=== PATIENT | female | born 1945 | race Caucasian/White ===

== ENCOUNTER 2018-06-28 05:15 | Day surgery (SDC) | payer MEDICARE, OTHER, SELFPAY ==
[2018-06-28] VITALS (9 sets, daily range): BP systolic 99–145; BP diastolic 63–122; PULSE 54–61; RESP 16; TEMP 36.1–36.3; O2SAT 85–100; BMI 23.6
--- NOTE | 2018-06-28 | COLBX_PTH ---
PATIENT: MALIK QUIÑONES LOC: EN U#:[id number] AGE/SX: 73/F ROOM: RE06/28/[address]: Dr. Corey Gordon MD : 1945 BED: DIS: 06/28/2018 SPEC #: [id number] RECD: 06/28/18 14:25 STATUS: SYLVIA ZORAN #: [id number] ADELAIDA: 06/28/18 00:[address]: Corey Gordon DEPT: SURGICAL PATHOLOGY RECD BY: Varinder Payne ENTERED: 06/28/18 14:25 SP TYPE: COLON BX OTHR DR: Dr. Hola Noel, DO Tissues: Ascending colon Procedures: Surgery Specimen Level IV HEADER OPERATION: Colonoscopy - open access (MOD) PRE-OP DIAGNOSIS: Screening TISSUE SUBMITTED: Mid ascending polyp MICROSCOPIC DIAGNOSIS Mid ascending colon polyp, biopsy: Fragments of inflammatory polyp. Fragments of fecal material. SJ:trent 07/01/18 MICROSCOPIC DESCRIPTION Slides are reviewed. GROSS DESCRIPTION Received in fixative is one container labeled with the patient's name and designated mid ascending polyp. The specimen consists of multiple irregular fragments of neff-pink polyp mixed with fecal material that in aggregate measure 2 x 0.6 x 0.3 cm. The specimen is totally submitted in one cassette. / SJ:rg 06/28/18 TC:5 CPT: 86331
--- NOTE | 2018-06-28 06:15 | HP.PCM_ITS ---
Problem List (1) Personal history of colonic polyps Status: Acute History of Present Illness Date of Admission: 06/28/18 The patient is a 73 year old F who has a personal history of colon polyps. She does not recall her previous colonoscopy but it is been several years in the [facility] greater than 5. She denies bright red blood per rectum or melena. No abdominal pain. No unexpected weight loss. She otherwise enjoys good health. Past Medical History Allergies nitrofurantoin Allergy (Verified 06/25/18 08:09) Upset Stomach prednisone Allergy (Verified 06/25/18 08:09) Other HEART RACING, ANXIETY ATTACK Home Medications: Ambulatory Orders Medication Instructions Recorded peg 3350-electrolytes 236 4,000 ml PO ONCE #4000 ml 05/09/18 gram-22.74 gram-6.74 gram-5.86 gram solution Calcium Carbonate/Vitamin D3 1 each PO DAILY 06/25/18 [Calcium 500 mg-Vit D3 600 Unit] Estradiol [Estrace Vaginal Cream] 1 gm VAGINAL Q7D 06/25/18 Multivitamin [Daily Multiple 1 each PO DAILY 06/25/18 Vitamin] [place]-3 Fatty Acids/Fish Oil [Fish 1 each PO DAILY 06/25/18 Oil 1,000 mg Capsule] Smoking Status: Never smoker Tobacco Use: Non-smoker Review of Systems Constitutional: Denies: Anorexia HEENT: Denies: Difficulty Swallowing Cardiovascular: Denies: Chest Pain Respiratory: Denies: Cough Gastrointestinal: Denies: Abdominal Pain, Melena Endocrine: Denies: Change in Body Habitus Hematologic/ Lymphatic: Denies: Anemia VTE Information - Inpt Only VTE Present on Admission: No Patient Problems: Active and Suspected Problems Personal history of colonic polyps (Acute) - Physical Exam General: Alert, Oriented x3, Cooperative, No apparent distress Oral: Moist Mucosa Neck: Supple Lungs: Clear to auscultation, Normal air movement Cardiovascular: Regular rate, Regular Rhythm Abdomen: Bowel Sounds Present, Soft, Non Tender, Non-Distended Extremities: No Calf Tenderness Psych/Mental Status: Normal Affect Vital Signs Temp Pulse Resp BP Pulse Ox 97.4 F L 61 16 124/81 H 100 06/28/18 05:38 06/28/18 05:38 06/28/18 05:38 06/28/18 05:38 06/28/18 05:38 Oxygen Delivery Method Room Air Weight: 121 lb 4.068 oz Body Mass Index (BMI) 23.6 Assessment/Plan All Active Problems Personal history of colonic polyps (Acute) I am recommending to the patient a colonoscopy with possible biopsy or polypectomy as indicated. She presents via our open access program. She has had an opportunity to ask and have questions answered. We will proceed as indicated. Corey Gordon M.D., F.A.C.S.
--- NOTE | 2018-06-28 06:50 | OP.ENDO_ITS ---
06/28/2018 Hola Noel [address] [id number] Re : Colonoscopy procedure for Giselle Malave Dear Dr. Noel This procedure was performed on Thursday, June 28, 2018. My impressions and recommendations are as follows: Impressions : - One 10 mm polyp in the mid ascending colon, removed with a hot snare. Resected and retrieved. - Diverticulosis in the entire examined colon. There was no evidence of diverticular bleeding. Recommendations : - Discharge patient to home. - Resume previous diet. - Continue present medications. - Repeat colonoscopy in 5 years for surveillance based on pathology results. - Telephone my office for pathology results in 1 week. My findings are described in the full procedure note, which is enclosed. If I can be of further assistance, please feel free to contact me at Doctor phone number(s): Work: . Sincerely, Corey Gordon MD 06/28/2018 6:49:38 AM This report has been signed electronically.
== END 2018-06-28 08:23 | disposition home or self-care (01) ==
LOC: EN 05:18 → AC 05:19
PROVIDERS: Family Provider Student in an Organized Health Care Education/Training Program; PCP Student in an Organized Health Care Education/Training Program; Referring Provider Surgery; Visit Provider Surgery
PROC: 0DJD8ZZ Inspection of Lower Intestinal Tract, Via Natural or Artificial Opening Endoscopic (ICD-10-PCS; CPT 45378; principal; 2018-06-28 06:25)
DX: Z12.11 Encounter for screening for malignant neoplasm of colon (principal); K63.5 Polyp of colon; K57.30 Diverticulosis of large intestine without perforation or abscess without bleeding; Z86.010 Personal history of colon polyps
CPT/HCPCS: 45385; 88305; 99152; 99153; J7120

== ENCOUNTER 2021-01-14 09:12 | Outpatient (CLI) | payer MEDICARE, OTHER, SELFPAY ==
[2021-01-14] MEDS: 0.9% Saline Lock 10 ML Syringe IV (09:32)
[2021-01-14 09:36] VITALS: BP 100/62; PULSE 72; RESP 18; TEMP 37.3; O2SAT 92; BMI 23.2
[2021-01-14 10:17] VITALS: BP 97/54; PULSE 66; RESP 16; TEMP 37.7; O2SAT 96
[2021-01-14 11:27] VITALS: BP 101/56; PULSE 69; RESP 16; TEMP 36.6; O2SAT 97
== END 2021-01-14 11:15 | disposition home or self-care (01) ==
LOC: MS3OUT 09:13 → MS3 09:13
PROVIDERS: PCP Student in an Organized Health Care Education/Training Program; Referring Provider Nurse Practitioner Acute Care; Visit Provider Nurse Practitioner Acute Care
DX: U07.1 COVID-19 (principal)
CPT/HCPCS: J7050; M0243; A4216; Q0240

== ENCOUNTER → 2021-03-28 14:15 | Outpatient (CLI) | payer MEDICARE, OTHER, SELFPAY ==
--- NOTE | 2021-03-28 14:19 | BI_ITS ---
MAMMOGRAPHY - BILATERAL DIAGNOSTIC REASON FOR EXAM: Female, 75 years old. ABN MAMM PERTINENT HISTORY: Non-contributory. TECHNIQUE: Digital examination. Mediolateral oblique (MLO) and craniocaudad (CC) views of both breasts were obtained. CAD: CAD was not performed on this study. COMPARISON: 03/08/2021 FINDINGS: Breast Composition: The breasts are heterogeneously dense, which may obscure small masses. Focal compression views did not confirm a mass in the medial right breast over the lateral left breast most consistent with normal breast parenchyma. No other significant abnormalities are identified. BI/DIAG MAMM W/CAD, BILAT IMPRESSION: Stable bilateral diagnostic mammogram. ASSESSMENT CATEGORY: BIRADS Category 1: Negative. A letter regarding these results will be sent to the patient by the facility within 30 days. FOLLOW UP RECOMMENDATION: Yearly follow up mammogram recommended. (A) Approximately 10% of breast cancers are not detected by mammography. A normal mammogram should not delay biopsy of a clinically suspicious abnormality. Electronically Signed: Domenic Thao MD at 15:14 EST Tel , Service support ,
== END ==
PROVIDERS: PCP Student in an Organized Health Care Education/Training Program; Referring Provider Student in an Organized Health Care Education/Training Program; Visit Provider Student in an Organized Health Care Education/Training Program
DX: R92.8 Other abnormal and inconclusive findings on diagnostic imaging of breast (principal)
CPT/HCPCS: 77062; 77066; G0279

== ENCOUNTER → 2022-04-10 | Outpatient (CLI) | payer MEDICARE, OTHER, SELFPAY ==
--- NOTE | 2022-04-10 13:03 | BI_ITS ---
MAMMOGRAPHY - BILATERAL SCREENING REASON FOR EXAM: Female, 77 years old. Routine annual screening examination. PERTINENT HISTORY: Aunt with breast cancer. TECHNIQUE: Digital bilateral breast [place] (3D mammographic acquisition) in the CC and MLO projections. 2-D mediolateral oblique (MLO) and craniocaudad (CC) views of both breasts were obtained. CAD: Full Field Digital Mammography with Computer Added Detection was performed. COMPARISON: Comparison is made with prior outside examination dated 03/08/2021 and 03/28/2021. FINDINGS: Breast Composition: The breasts are heterogeneously dense, which may obscure small masses. There are no dominant masses or suspicious calcifications. Stable small benign appearing bilateral axillary nodes. No other significant abnormalities are identified. There has been no significant change since the prior study. BI/SCRN MAMM (CAD)W/[place] BILAT IMPRESSION: Stable bilateral screening mammogram. Yearly follow-up mammogram recommended. (A) ASSESSMENT CATEGORY: BIRADS Category 2: Benign. A letter regarding these results will be sent to the patient by the facility within 30 days. Approximately 10% of breast cancers are not detected by mammography. A normal mammogram should not delay biopsy of a clinically suspicious abnormality. [id number] Electronically Signed: Dano Carlson MD at 11:31 EST ,
== END | disposition home or self-care (01) ==
LOC: OPBI 13:00
PROVIDERS: PCP Student in an Organized Health Care Education/Training Program; Visit Provider Student in an Organized Health Care Education/Training Program
DX: Z12.31 Encounter for screening mammogram for malignant neoplasm of breast (principal)
CPT/HCPCS: 77063; 77067

== ENCOUNTER → 2023-04-16 | Outpatient (CLI) | payer MEDICARE, OTHER, SELFPAY ==
--- NOTE | 2023-04-16 08:29 | BI_ITS ---
MAMMOGRAPHY - BILATERAL SCREENING REASON FOR EXAM: Female, 78 years old. Routine annual screening examination. PERTINENT HISTORY: Aunt with breast cancer. History of remote right needle breast biopsy. TECHNIQUE: Digital bilateral breast [place] (3D mammographic acquisition) in the CC and MLO projections. 2-D mediolateral oblique (MLO) and craniocaudad (CC) views of both breasts were obtained. CAD: Full Field Digital Mammography with Computer Added Detection was performed. COMPARISON: Comparison is made with prior study dated April 10, 2022 and March 28, 2021. FINDINGS: Breast Composition: The breasts are heterogeneously dense, which may obscure small masses. There are no dominant masses or suspicious calcifications. No other significant abnormalities are identified. There has been no significant change since the prior study. BI/SCRN MAMM (CAD)W/[place] BILAT IMPRESSION: Stable bilateral screening mammogram. Yearly follow-up mammogram recommended. (A) ASSESSMENT CATEGORY: BIRADS Category 1: Negative. A letter regarding these results will be sent to the patient by the facility within 30 days. Approximately 10% of breast cancers are not detected by mammography. A normal mammogram should not delay biopsy of a clinically suspicious abnormality. [id number] Electronically Signed: Dano Carlson MD at 10:28 EST ,
--- OUTSIDE RECORDS SUMMARY | 2023-04-16 08:38 | XMS RPT_ITS | CCD ---
Author Name Unknown Address [address] [place] [address] Organization [facility] Care Team Providers [employer] Man Name Role Phone Hola Simon DO Primary Care Provider PROVIDER, UNKNOWN Attending Unavailable PROVIDER, UNKNOWN Admitting Unavailable HOLA SIMON Primary Care Unavailable Hola Simon DO Primary Care Provider HOAL SIMON Primary Care Unavailable HOLA SIMON Attending Unavailable HOLA SIMON Referring Unavailable HOLA SIMON Primary Care Unavailable HOLA SIMON Primary Care Unavailable DELL GARSIA Attending Unavailable DELL GARSIA Attending Unavailable DELL GARSIA Referring Unavailable SIMONHOLA GUTIÉRREZ Primary Care Unavailable SIMONHOLA CORADO Primary Care Unavailable GIOVANNA RAMOS Attending Unavailable HOLA SIMON Primary Care Unavailable HOLA SIMON Attending Unavailable HOLA SIMON Referring Unavailable SIMONHOLA GUTIÉRREZ Primary Care Unavailable DELL GARSIA Referring Unavailable SIMONHOLA GUTIÉRREZ Primary Care Unavailable DELL GARSIA Attending Unavailable HOLA SIMON Primary Care Unavailable DELL GARSIA Attending Unavailable HOLA SIMON Referring Unavailable SIMONHOLA GUTIÉRREZ Primary Care Unavailable HOLA SIMON Attending Unavailable HOLA SIMON Primary Care Unavailable Allergies Allergy Classification Reported Allergen(s) Allergy Type Date of Onset Reaction(s) Facility (20 sources) Codeine; Translations: [CODEINE] Drug Allergy 01-26-2005 [facility] Work Phone: (20 sources) Nitrofurantoin; Translations: [NITROFURANTOIN] Drug Allergy 01-26-2005 GI Upset [facility] Work Phone: (20 sources) predniSONE; Translations: [PREDNISONE] Drug Allergy 09-20-2011 Intolerance [facility] Work Phone: Medications Current Medications Medication Drug Class(es) Dates Sig (Normalized) Sig (Original) azithromycin 250 mg oral tablet (1 source) Macrolide Antimicrobial Start: 05-03-2022 End: 05-08-2022 azithromycin (ZITHROMAX Z-DEWAYNE) 250 mg tablet Take 2 tablets day one, then, 1 tablet daily until gone. 6 tablet 0 05/03/2022 05/08/2022 Active Completed/Discontinued Medications Medication Drug Class(es) Dates Sig (Normalized) Sig (Original) [id number] 200 actuat albuterol 0.09 mg/actuat metered dose inhaler (20 sources) beta2-Adrenergic Agonist Start: 09-04-2022 take 2 puff(s) by inhalation every four hours as needed albuterol HFA (PROAIR HFA) 90 mcg/actuation inhaler Inhale 2 Puffs as instructed every 4 hours as needed. 36 g 5 09/04/2022 Active Problems Active Problems Problem Classification Problem Date Documented Da te Episodic/Chronic Administrative/social admission (1 source) Patient encounter status; Translations: [Encounter for health counseling related to travel] Episodic Chronic kidney disease (20 sources) Chronic kidney disease stage 3A ; Translations: [Stage 3a chronic kidney disease] Onset: 03-03-2021 03-03-2021 Chronic Chronic kidney disease (1 source) Chronic kidney disease; Translations: [Stage 3a chronic kidney disease (HCC)] Onset: 03-03-2021 Disorders of lipid metabolism (20 sources) Mixed hyperlipidemia; Translations: [Mixed hyperlipidemia] Onset: 01-26-2005 01-26-2005 Chronic Heart valve disorders (20 sources) Tricuspid valve regurgitation; Translations: [Rheumatic tricuspid insufficiency] Onset: 04-02-2016 10-11-2016 Chronic Menopausal disorders (20 sources) Atrophic vaginitis; Translations: [Postmenopausal atrophic vaginitis] Onset: 08-08-2007 08-08-2007 Chronic Nutritional deficiencies (20 sources) Vitamin D deficiency; Translations: [Vitamin D deficiency, unspecified] Onset: 12-03-2009 12-03-2009 Chronic Other acquired deformities (20 sources) Scoliosis deformity of spine; Translations: [Scoliosis, unspecified] 05-09-2011 Chronic Other bone disease and musculoskeletal deformities (20 sources) Osteopenia; Translations: [Other specified disorders of bone density and structure, unspecified site] 05-09-2011 Episodic Other connective tissue disease (1 source) Digital mucous cyst of left hand; Translations: [Ganglion, left hand] Episodic Other connective tissue disease (2 sources) Dupuytren's disease of palm; Translations: [Palmar fascial fibromatosis [Dupuytren]] Episodic Other connective tissue disease (2 sources) Dupuytren's contracture; Translations: [Palmar fascial fibromatosis [Dupuytren]] Episodic Other connective tissue disease (1 source) Palmar fascial fibromatosis [Dupuytren]; Translations: [Dupuytren's disease] Onset: 09-15-2022 Episodic Other female genital disorders (20 sources) Simple endometrial glandular hyperplasia without atypia; Translations: [Benign endometrial hyperplasia] Onset: 08-08-2007 08-08-2007 Chronic Other lower respiratory disease (1 source) Dry cough; Translations: [Persistent dry cough] Episodic Prolapse of female genital organs (20 sources) Midline cystocele; Translations: [Cystocele, midline] Onset: 08-08-2007 08-08-2007 Chronic Past or Other Problems Problem Classification Problem Date Documented Da te Episodic/Chronic Anal and rectal conditions (20 sources) Rectal polyp; Translations: [Rectal polyp] Onset: 04-07-2011 03-28-2021 Episodic Diabetes mellitus without complication (18 sources) Hyperglycemia; Translations: [Impaired fasting glucose] Onset: 03-06-2022 Episodic Other and unspecified benign neoplasm (20 sources) Benign neoplasm of rectum and anal canal; Translations: [Benign neoplasm of rectum] Onset: 04-07-2011 04-07-2011 Episodic Other connective tissue disease (1 source) Ganglion, left hand; Translations: [Digital mucinous cyst of finger of left hand] Onset: 06-19-2022 Episodic Other lower respiratory disease (14 sources) Cough; Translations: [Other cough] Onset: 03-06-2022 Episodic Other screening for suspected conditions (not mental disorders or infectious disease) (20 sources) Blood chemistry abnormal; Translations: [Other specified abnormal findings of blood chemistry] Onset: 08-08-2007 08-08-2007 Episodic Residual codes; unclassified (20 sources) Family history of breast cancer; Translations: [Family history of malignant neoplasm of breast] Onset: 08-08-2007 08-08-2007 Episodic Results Test Name Value Interpretation Reference Range Facil ity Vital Signs Date Time Vital Sign Value Performing Clinician Deven ramirez 09-04-2022 08:41-0400 Body temperature 97 [degF] Hola Simon DO Work Phone: [facility] 09-04-2022 08:41-0400 Body weight 54.43 kg Hola Simon DO Work Phone: [facility] 09-04-2022 08:41-0400 Diastolic blood pressure 80 mm[Hg] Hola Simon DO Work Phone: [facility] 09-04-2022 08:41-0400 Heart rate 64 /min Hola Simon DO Work Phone: [facility] 09-04-2022 08:41-0400 Respiratory rate 16 /min Hola Simon DO Work Phone: [facility] 09-04-2022 08:41-0400 Systolic blood pressure 124 mm[Hg] Hola Simon DO Work Phone: [facility] 06-09-2022 08:42-0500 Body temperature 97 [degF] Hola Simon DO Work Phone: [facility] 06-09-2022 08:42-0500 Body weight 53.98 kg Hola Simon DO Work Phone: [facility] 06-09-2022 08:42-0500 Diastolic blood pressure 80 mm[Hg] Hola Simon DO Work Phone: [facility] 06-09-2022 08:42-0500 Heart rate 60 /min Hola Simon DO Work Phone: [facility] 06-09-2022 08:42-0500 Respiratory rate 12 /min Hola Simon DO Work Phone: [facility] 06-09-2022 08:42-0500 Systolic blood pressure 120 mm[Hg] Hola Simon DO Work Phone: [facility] 03-06-2022 09:05-0500 Body temperature 97 [degF] Hola Simon DO Work Phone: [facility] 03-06-2022 09:05-0500 Body weight 53.07 kg Hola Simon DO Work Phone: [facility] 03-06-2022 09:05-0500 Diastolic blood pressure 60 mm[Hg] Hola Simon DO Work Phone: [facility] 03-06-2022 09:05-0500 Heart rate 76 /min Hola Simon DO Work Phone: [facility] 03-06-2022 09:05-0500 Respiratory rate 16 /min Hola Simon DO Work Phone: [facility] 03-06-2022 09:05-0500 Systolic blood pressure 100 mm[Hg] Hola Simon DO Work Phone: [facility] 07-08-2021 13:52-0400 Body temperature 98.1 [degF] Bob Villafana MD Work Phone: [facility] 07-08-2021 13:52-0400 Body weight 53.98 kg Bob Villafana MD Work Phone: [facility] 07-08-2021 13:52-0400 Diastolic blood pressure 78 mm[Hg] Bob Villafana MD Work Phone: [facility] 07-08-2021 13:52-0400 Heart rate 73 /min Bob Villafana MD Work Phone: [facility] 07-08-2021 13:52-0400 Respiratory rate 16 /min Bob Villafana MD Work Phone: [facility] 07-08-2021 13:52-0400 SaO2% (BldA) [Mass fraction] 97 % Bob Villafana MD Work Phone: [facility] 07-08-2021 13:52-0400 Systolic blood pressure 112 mm[Hg] Bob Villafana MD Work Phone: [facility] Encounters Encounter Date Encounter Type Care Provider Facility Start: 04-10-2023 End: 04-10-2023 ambulatory HOLA L SIMON Facility:[facility] Start: 04-06-2023 End: 04-07-2023 ambulatory HOLA L SIMON Facility:[facility] Start: 11-02-2022 End: 11-03-2022 ambulatory HOLA L SIMON Facility:[facility] Start: 10-05-2022 End: 10-05-2022 ambulatory DELL GARSIA Facility:[facility] Start: 09-29-2022 Telephone encounter Dell reilly MD Work Phone: Orthopaedics Procedures Date Procedure Procedure Detail Performing Clinician Start: 06-19-2022 Injection 1 tendon sheath/ligament aponeurosis Dell Garsia MD Work Phone: Start: 04-10-2022 Mammography Hola corado DO Work Phone: Start: 08-05-2021 Adult depression screening assessment Diagnostic [facility] Start: 03-08-2021 Mammography Sea Villafana MD Work Phone: Start: 12-25-2018 Adult depression screening assessment Bob Villafana MD Work Phone: Start: 04-07-2011 Colonoscopy Sea Villafana MD Work Phone: Plan of Treatment Date Care Activity Detail Author Start: 08-25-2027 LIPID SCREEN LIPID SCREEN [facility] Start: 08-04-2026 LIPID SCREEN LIPID SCREEN [facility] Start: 08-24-2025 DIABETES SCREEN DIABETES SCREEN [facility] Start: 04-13-2025 LIPID SCREEN LIPID SCREEN [facility] Start: 03-02-2025 DIABETES SCREEN DIABETES SCREEN [facility] Start: 08-04-2024 DIABETES SCREEN DIABETES SCREEN [facility] Start: 03-03-2024 DIABETES SCREEN DIABETES SCREEN [facility] Start: 09-05-2023 ANNUAL PCP TEAM RESEARCH PHYSIOLOGIST NATANAEL DISEASE VISIT ANNUAL PCP TEAM CHRONIC DISEASE VISIT [facility] Start: 08-25-2023 HEMOGLOBIN/HEMATOCRIT HEMOGLOBIN/HEM ATOCRIT [facility] Start: 08-25-2023 SERUM CREATININE SERUM CREATININE [facility] Start: 06-10-2023 ANNUAL PCP TEAM RESEARCH PHYSIOLOGIST NATANAEL DISEASE VISIT ANNUAL PCP TEAM CHRONIC DISEASE VISIT [facility] Start: 04-10-2023 Mammography MAMMOGRAM [facility] Start: 03-06-2023 ANNUAL PCP TEAM RESEARCH PHYSIOLOGIST NATANAEL DISEASE VISIT ANNUAL PCP TEAM CHRONIC DISEASE VISIT [facility] Start: 03-06-2023 COVID-19 VACCINE (#1) COVID-19 VACCI NE (#1) [facility] Immunizations Immunization Date Immunization Notes Care Provider Fa cility 02-01-2011 tetanus toxoid, redu rambo diphtheria toxoid, and acellular pertussis vaccine, adsorbed Bob Villafana MD Work Phone: [facility] Payers Date Payer Category Payer Medicare [id number] 2015 Private Health Insurance HUMANA HUMANA MEDICARE SUPPLEMENT [id number] 2015-Present [phone] [address] [address] [place] [address] Indemnity [id number] 2015 Private Health Insurance HUMANA HUMANA MEDICARE SUPPLEMENT [id number] 2015-Present [phone] [address] [address] [place] [address] Indemnity [id number] 2012 Medicare MEDICARE MEDICAR E A AND B [id number] 2012-Present [phone] [place] [address] Medicare [id number] 2012 Medicare MEDICARE MEDICAR E A AND B [id number] 2012-Present [phone] [place] [address] Medicare [id number] 2012 Medicare [id number] Social History Date Type Detail Facility [facility]: [facility]08[facility] Start: 07-08-2021 End: 09-25-2022 Alcohol intake Current non-drinker of alcohol (finding) [facility] Start: 1945 Sex Assigned At Not on file [facility] Start: 03-22-2021 End: 03-06-2022 Exposure to SARS-CoV-2 (event) Not sure [facility] Work Phone: Start: 12-08-2010 Tobacco use and exposure Smokeless tobacco non-user [facility] Work Phone: Start: 1945 Sex Assigned At Female [facility] Clinical Notes 07-08-2021 to 04-10-2023 Telephone Encounter - Janette Mao Ma - 10/05/2022 11:47 AM EDTTelephone Encounter - Janette Mao Ma - 10/05/2022 11:39 AM EDTTelephone Encounter - Nadege Lawrence LPN - 09/29/2022 2:19 PM EDT Note Date & Type Note Facility 04-10-2023 Note HNO ID: [id number] Author: HOLA SIMON, DO Service: ? Author Type: Physician Type: Progress Notes Filed: 04/10/2023 17:47 Note Text: CC: Giselle Quiñones is a 78 year old female who presents to the office for follow up HPI: She is overall doing well. She is walking for exercise regularly HPL, she isn't interested in statin therapy IFG, diet controlled Estrogen deficiency vaginal symptoms of atrophy, use of estrace topical [place] be traveling out of country on a mission trip. Asking to travel with medication as needed PAST MEDICAL HISTORY Diagnosis Date Excessive or frequent menstruation Heavy periods resolved Mixed hyperlipidemia Hyperlipidemia Osteopenia 04/2012 Papanicolaou smear of cervix with atypical squamous cells of undetermined significance (ASC-US) 2005 Neg HPV Papanicolaou smear of cervix with low grade squamous intraepithelial lesion (LGSIL) 2004 PMH - PAST MEDICAL HISTORY OF 2003 complex endometrial hyperplasia Rectal polyp 04/07/11 tubular adenoma Scoliosis Tricuspid valve insufficiency 2017 repeat Echo in [id number] Vitamin D deficiency PAST SURGICAL HISTORY Procedure Laterality Date BIOPSY BREAST OPEN INCISIONAL Bx of right breast, incisional COLONOSCOPY 06/28/2018 mid ascending colon polyp- benign; repeat 5 years/ Dr. R Cebul COLONOSCOPY AND POLYPECTOMY 04/07/2011 repeat due 2015 HYSTEROSCOPY, DIAGNOSTIC (SEPARATE 05/2006 Hysteroscopy/curettage PAST SURGICAL HISTORY OF ventral hernia repair x 2 PAST SURGICAL HISTORY OF laparoscopy x3 PAST SURGICAL HISTORY OF Left 09/15/2022 5th finger kolb fasciotomy SALPINGO-OOPHORECTOMY COMPL/PRTL UNI/BI SPX Salpingo-oophorectomy/unilateral right TONSILLECTOMY PRIMARY/SECONDARY Tonsillectomy Social History: Social History Tobacco Use Smoking status: Never Smokeless tobacco: Never Vaping Use Vaping Use: Never used Substance Use Topics Alcohol use: No Drug use: No FAMILY HISTORY Problem Relation Age of Onset Hypertension Mother Diabetes Mother Heart Mother Breast Cancer Maternal Aunt Anesthesia Problems No Family History Current Outpatient prescriptions: estradiol (ESTRACE) 0.01 % (0.1 mg/gram) vaginal cream Generic okay, Apply pea-sized amount to perineum and 1 applicator vaginally Mon, Wed, Fri for atrophic vaginitis. albuterol HFA (PROAIR HFA) 90 mcg/actuation inhaler Inhale 2 Puffs as instructed every 4 hours as needed. omeprazole (PRILOSEC) 40 mg capsule Take 1 capsule by mouth once daily. zinc sulfate (ZINC-15 ORAL) Take by mouth. ergocalciferol, vitamin D2, (VITAMIN D2 ORAL) Take by mouth. dicyclomine (BENTYL) 10 mg capsule Take 1 capsule by mouth before meals and at bedtime. For abdominal cramping or diarrhea ESTRACE 0.01 % (0.1 mg/gram) vaginal cream Use small amount at vaginal opening 2 nights per week calcium carbonate/vitamin d3(CALCIUM 600 + D 600 MG-125 UNIT TAB) Take one(1) tablet two(2) times daily. DAILY MULTIVITAMIN TAB fluticasone-salmeterol (ADVAIR DISKUS) 250-50 mcg/dose inhaler Inhale 1 Puff as instructed twice daily. Rinse and gargle mouth after use with water. [place]-3 Fatty Acids-Vitamin E 1,000 mg cap Take 1 capsule by mouth once daily. Allergies: ALLERGIES Allergen Reactions Codeine tingling Nitrofurantoin GI Upset Prednisone Intolerance ROS: See HPI PE: 04/10/23 0747 BP: 120/80 Pulse: 64 Resp: 16 Temp: 36.1 ?C (97 ?F) TempSrc: Temporal Weight: 54.4 kg (120 lb) Height: 148 cm (4' 10.27 ) Gen: AANDO, NAD, non-toxic appearing, Pleasant, cooperative HEENT: NT/AC, PERRLA, EOMs intact b/l, nares clear and patent b/l, pharynx without erythema, exudate or lesions. Uvula midline. MMM, EACs without erythema or debris. TMs pearly merida with intact landmarks b/l. Neck: supple, No cervical LAD, no thyromegaly, no carotid bruits CV: RRR, normal S1 and S2, no murmurs, no gallops, no rubs, Pulses 2+ and symmetric in UE and LE b/l Lungs: normal respiratory effort, CTA b/l, no wheezing or rhonchi or rales Abd: soft, NT, ND, +BS, no hepatosplenomegaly MS: FROM all 4 extremities Neuro: CN II-XII intact b/l, strength 5/5 b/l UE and LE, DTRs 2/4 UE and LE, sensation intact. Skin: warm, dry, intact, No rashes or lesions on exposed skin. No edema, normal pulses ASSESSMENT/PLAN: 1. Mixed hyperlipidemia - ICD9: 272.2, ICD10: E78.2 (primary diagnosis) - Uncontrolled - Counseled on healthy diet and regular exercise - Discussed need for and benefit of weight loss. BMI 24.85 kg/(m2) 2. Counseling about travel - ICD9: V65.49, ICD10: Z71.84 rx for travel purposes. - CIPROFLOXACIN 500 MG TABLET 3. Stage 3a chronic kidney disease (HCC) - ICD9: 585.3, ICD10: N18.31 - eGFR: 62 Stable - Counseled on avoiding NSAIDs, adequate hydration - Counseled on low sodium diet 4. IFG (impaired fasting glucose) - ICD9: 790.21, ICD10: R73.01 Stable, diet controlled. 5. ATROPHIC VAGINITIS - ICD9: 627.3, ICD10 (more content not included)... [facility] 11-10-2022 Note HNO ID: [id number] Author: Dell Garsia MD Service: ? Author Type: Physician Type: Progress Notes Filed: 11/10/2022 10:20 AM Note Text: Dell Garsia MD Department of Orthopaedics [facility] [address] [place] [address] Dept: [phone] Dept November 10, 2022 CHIEF COMPLAINT: Post Op of the Left Hand. HPI Patient is about 6 weeks after her Dupuytren's excision. She is doing well with minimal complaints. Mild soreness and stiffness expected. ASSESSMENT: M72.0 Dupuytren's disease of palm (primary encounter diagnosis) SUMMARY/PLAN: Overall the finger is looking quite excellent. I encouraged her to continue with her scar management and range of motion especially with stretching and extension PIP. Exam: Healed incision. Mild and appropriate firmness at the scar. She has near complete active and passive extension. Supporting Information Below: Medications: Current Outpatient Medications Medication Sig estradiol (ESTRACE) 0.01 % (0.1 mg/gram) vaginal cream Generic okay, Apply pea-sized amount to perineum and 1 applicator vaginally Mon, Sun, Sun for atrophic vaginitis. albuterol HFA (PROAIR HFA) 90 mcg/actuation inhaler Inhale 2 Puffs as instructed every 4 hours as needed. zinc sulfate (ZINC-15 ORAL) Take by mouth. ergocalciferol, vitamin D2, (VITAMIN D2 ORAL) Take by mouth. [place]-3 Fatty Acids-Vitamin E 1,000 mg cap Take 1 capsule by mouth once daily. calcium carbonate/vitamin d3(CALCIUM 600 + D 600 MG-125 UNIT TAB) Take one(1) tablet two(2) times daily. DAILY MULTIVITAMIN TAB fluticasone-salmeterol (ADVAIR DISKUS) 250-50 mcg/dose inhaler Inhale 1 Puff as instructed twice daily. Rinse and gargle mouth after use with water. omeprazole (PRILOSEC) 40 mg capsule Take 1 capsule by mouth once daily. dicyclomine (BENTYL) 10 mg capsule Take 1 capsule by mouth before meals and at bedtime. For abdominal cramping or diarrhea ESTRACE 0.01 % (0.1 mg/gram) vaginal cream Use small amount at vaginal opening 2 nights per week No current facility-administered medications for this visit. Allergies: Codeine, Nitrofurantoin, and Prednisone Dell Garsia MD [facility] 11-02-2022 Note HNO ID: [id number] Author: Dell Garsia MD Service: ? Author Type: Physician Type: Progress Notes Filed: 12/01/2022 11:36 PM Note Text: Dell Garsia MD Department of Orthopaedics Orthopaedics [address] [place] [address] Dept: [phone] Dept November 02, 2022 CHIEF COMPLAINT: Post Op of the Left Little Finger. HPI Patient here for 6 weeks 6 days post op Left 5th finger palmar fasciotomy. Patient denies any pain. Patient is still having some numbness at the bottom part of her finger. When she bends her finger it feels like wood. ASSESSMENT: M72.0 Dupuytren's disease of palm (primary encounter diagnosis) SUMMARY/PLAN: Her hand looks excellent. She has excellent motion. Continue current activities. Supporting Information Below: Medications: Current Outpatient Medications Medication Sig estradiol (ESTRACE) 0.01 % (0.1 mg/gram) vaginal cream Generic okay, Apply pea-sized amount to perineum and 1 applicator vaginally Mon, Sun, Sun for atrophic vaginitis. albuterol HFA (PROAIR HFA) 90 mcg/actuation inhaler Inhale 2 Puffs as instructed every 4 hours as needed. fluticasone-salmeterol (ADVAIR DISKUS) 250-50 mcg/dose inhaler Inhale 1 Puff as instructed twice daily. Rinse and gargle mouth after use with water. omeprazole (PRILOSEC) 40 mg capsule Take 1 capsule by mouth once daily. zinc sulfate (ZINC-15 ORAL) Take by mouth. ergocalciferol, vitamin D2, (VITAMIN D2 ORAL) Take by mouth. dicyclomine (BENTYL) 10 mg capsule Take 1 capsule by mouth before meals and at bedtime. For abdominal cramping or diarrhea ESTRACE 0.01 % (0.1 mg/gram) vaginal cream Use small amount at vaginal opening 2 nights per week [place]-3 Fatty Acids-Vitamin E 1,000 mg cap Take 1 capsule by mouth once daily. calcium carbonate/vitamin d3(CALCIUM 600 + D 600 MG-125 UNIT TAB) Take one(1) tablet two(2) times daily. DAILY MULTIVITAMIN TAB No current facility-administered medications for this visit. Allergies: Codeine, Nitrofurantoin, and Prednisone Dell Garsia MD [facility] 10-05-2022 Miscellaneous Notes Patient called back and would prefer an appointment today. Patient was double booked at 3:20 pm. She didn't hear anything back last week so on Sunday she went to the [facility]. Will attempt to obtain those records. Images from the original note were not included. Dell Garsia MD [facility] [place] 4 hours ago (7:18 AM) We can call pt for an update and see if she needs to come in early to check surgical wound. BP I called and left a message for the patient to contact the office. Patient called in with update regarding left 5th finger. Patient states she had procedure on 09/15. Patient states when she woke up this morning she notified redness, warmth and swelling to left 5 th finger. Patient rates pain 5/10 on pain scale and states that the site is tender. Patient does not complain of Fever, chill, or discharge. Patient states that she is having difficulty moving first knuckle due to swelling. Please advise. Nadege Lawrence LPN documented in this encounter [facility] 09-25-2022 Note HNO ID: [id number] Author: Giovanna Ramos PA-C Service: ? Author Type: Physician Electrical Assembler Type: Progress Notes Filed: 09/25/2022 2:09 PM Note Text: Giovanna Ramos PA-C Department of Orthopaedics Orthopaedics [address] [facility] [address] Dept: [phone] Dept September 25, 2022 CHIEF COMPLAINT: Established Patient and Post Op of the Left Hand and 5th finger kolb fasciotomy. ASSESSMENT: M72.0 Dupuytren's contracture (primary encounter diagnosis) SUMMARY/PLAN: Patient presents 1 week and 5 days status post left pinky palmar fasciectomy. She is doing very well, denies any pain unless the finger is bumped. We discussed proper hand washing, no soaking of the operative hand. No heavy lifting, pushing or pulling with the operative hand, encourage gentle motion. We discussed scar massage. Follow up as planned. Exam: Incision site is well approximated without erythema or drainage, there is mild but appropriate edema of the digit as well as some subjective soreness at the PIP joint. Patient is able to gently flex and extend the digit with subjective stiffness. Sensation is intact to the left pinky digit. Imaging: Deferred today. Ms. Giselle Quiñones was advised as to contrast therapies and/or to take analgesics/anti-inflammatories as needed and all contraindications were reviewed. Supporting Information Below: Medications: Current Outpatient Medications Medication Sig estradiol (ESTRACE) 0.01 % (0.1 mg/gram) vaginal cream Generic okay, Apply pea-sized amount to perineum and 1 applicator vaginally Mon, Wed, Fri for atrophic vaginitis. albuterol HFA (PROAIR HFA) 90 mcg/actuation inhaler Inhale 2 Puffs as instructed every 4 hours as needed. zinc sulfate (ZINC-15 ORAL) Take by mouth. ergocalciferol, vitamin D2, (VITAMIN D2 ORAL) Take by mouth. [place]-3 Fatty Acids-Vitamin E 1,000 mg cap Take 1 capsule by mouth once daily. calcium carbonate/vitamin d3(CALCIUM 600 + D 600 MG-125 UNIT TAB) Take one(1) tablet two(2) times daily. DAILY MULTIVITAMIN TAB fluticasone-salmeterol (ADVAIR DISKUS) 250-50 mcg/dose inhaler Inhale 1 Puff as instructed twice daily. Rinse and gargle mouth after use with water. omeprazole (PRILOSEC) 40 mg capsule Take 1 capsule by mouth once daily. dicyclomine (BENTYL) 10 mg capsule Take 1 capsule by mouth before meals and at bedtime. For abdominal cramping or diarrhea ESTRACE 0.01 % (0.1 mg/gram) vaginal cream Use small amount at vaginal opening 2 nights per week No current facility-administered medications for this visit. Allergies: Codeine, Nitrofurantoin, and Prednisone This note was partially generated using [employer] voice recognition system, and there may be some incorrect words, spellings, and punctuation that were not noted in checking the note before saving. Giovanna Ramos PA-C [facility] 09-25-2022 Note HNO ID: [id number] Author: Gisela Wei RN Service: ? Author Type: Registered Nurse Type: Progress Notes Filed: 09/25/2022 2:09 PM Note Text: Patient presents with: Left Hand - Established Patient, Post Op 5th finger kolb fasciotomy Pt comes in for post-op visit for left hand 5th finger fasciotomy. Pt denies pain at this time, but states it is still pretty tender and hurts if bumped. Pt has been leaving surgical site open to air. Site is a bit swollen and discolored. Sutures remain intact. [facility] 09-25-2022 History of Present illness Narrative Giovanna Ramos PA-C Department of Orthopaedics [facility] [address] [facility] [address] Dept: [phone] Dept September 25, 2022 CHIEF COMPLAINT: Established Patient and Post Op of the Left Hand and 5th finger kolb fasciotomy. ASSESSMENT: M72.0 Dupuytren's contracture (primary encounter diagnosis) SUMMARY/PLAN: Patient presents 1 week and 5 days status post left pinky palmar fasciectomy. She is doing very well, denies any pain unless the finger is bumped. We discussed proper hand washing, no soaking of the operative hand. No heavy lifting, pushing or pulling with the operative hand, encourage gentle motion. We discussed scar massage. Follow up as planned. Exam: Incision site is well approximated without erythema or drainage, there is mild but appropriate edema of the digit as well as some subjective soreness at the PIP joint. Patient is able to gently flex and extend the digit with subjective stiffness. Sensation is intact to the left pinky digit. Imaging: Deferred today. Ms. Giselle Quiñones was advised as to contrast therapies and/or to take analgesics/anti-inflammatories as needed and all contraindications were reviewed. Supporting Information Below: Medications: Current Outpatient Medications Medication Sig estradiol (ESTRACE) 0.01 % (0.1 mg/gram) vaginal cream Generic okay, Apply pea-sized amount to perineum and 1 applicator vaginally Mon, Sun, Sun for atrophic vaginitis. albuterol HFA (PROAIR HFA) 90 mcg/actuation inhaler Inhale 2 Puffs as instructed every 4 hours as needed. zinc sulfate (ZINC-15 ORAL) Take by mouth. ergocalciferol, vitamin D2, (VITAMIN D2 ORAL) Take by mouth. [place]-3 Fatty Acids-Vitamin E 1,000 mg cap Take 1 capsule by mouth once daily. calcium carbonate/vitamin d3(CALCIUM 600 + D 600 MG-125 UNIT TAB) Take one(1) tablet two(2) times daily. DAILY MULTIVITAMIN TAB fluticasone-salmeterol (ADVAIR DISKUS) 250-50 mcg/dose inhaler Inhale 1 Puff as instructed twice daily. Rinse and gargle mouth after use with water. omeprazole (PRILOSEC) 40 mg capsule Take 1 capsule by mouth once daily. dicyclomine (BENTYL) 10 mg capsule Take 1 capsule by mouth before meals and at bedtime. For abdominal cramping or diarrhea ESTRACE 0.01 % (0.1 mg/gram) vaginal cream Use small amount at vaginal opening 2 nights per week No current facility-administered medications for this visit. Allergies: Codeine, Nitrofurantoin, and Prednisone This note was partially generated using [employer] voice recognition system, and there may be some incorrect words, spellings, and punctuation that were not noted in checking the note before saving. Giovanna Ramos PA-C Patient presents with: Left Hand - Established Patient, Post Op 5th finger kolb fasciotomy Pt comes in for post-op visit for left hand 5th finger fasciotomy. Pt denies pain at this time, but states it is still pretty tender and hurts if bumped. Pt has been leaving surgical site open to air. Site is a bit swollen and discolored. Sutures remain intact. documented in this encounter [facility] 09-15-2022 Miscellaneous Notes Order faxed to [facility]. Pt notified via [employer]. Lilibeth Tristan Ma documented in this encounter [facility] 09-04-2022 Note HNO ID: [id number] Author: Hola Simon, DO Service: ? Author Type: Physician Type: Progress Notes Filed: 09/04/2022 1:28 PM Note Text: CC: Giselle Quiñones is a 77 year old female who presents to the office for follow up HPI: Finger concern, left hand, 5th finger, feels it is getting bigger, present for the last 4-6 months. No skin color changes. No known injuries. Has been seen by orthopedics, had a steroid injection without relief. Is scheduled to have upcoming surgery in 2 weeks approx She is overall doing well. She is walking for exercise regularly HPL, she isn't interested in statin therapy Cholesterol, Total Date Value Ref Range Status 08/24/2022 254 (H) <200 mg/dL Final Comment: <200 mg/dL, Desirable 200-239 mg/dL, Borderline high >239 mg/dL, High HDL Cholesterol Date Value Ref Range Status 08/24/2022 54 >39 mg/dL Final Comment: 40-59 mg/dL, Acceptable >59 mg/dL, High: Negative risk factor for coronary heart disease <40 mg/dL, Low: Positive risk factor for coronary heart disease LDL Cholesterol Date Value Ref Range Status 08/24/2022 180 (H) <100 mg/dL Final Comment: <100 mg/dL, Optimal 100-129 mg/dL, Near optimal/above optimal 130-159 mg/dL, Borderline high 160-189 mg/dL, High >189 mg/dL, Very high Secondary prevention optimal LDL Cholesterol levels are recommended to be < 70 mg/dL Triglyceride Date Value Ref Range Status 08/24/2022 99 <150 mg/dL Final Comment: <150 mg/dL, Normal 150-199 mg/dL, Borderline high 200-499 mg/dL, High >499 mg/dL, Very high Glucose (mg/dL) Date Value 08/24/2022 94 03/03/2021 111 Potassium (mmol/L) Date Value 08/24/2022 4.3 03/03/2021 4.4 Sodium (mmol/L) Date Value 08/24/2022 142 03/03/2021 137 Chloride (mmol/L) Date Value 08/24/2022 106 03/03/2021 100 CO2 (mmol/L) Date Value 08/24/2022 25 03/03/2021 25 Creatinine (mg/dL) Date Value 08/24/2022 1.06 03/03/2021 0.85 BUN (mg/dL) Date Value 08/24/2022 18 03/03/2021 13 Anion Gap (mmol/L) Date Value 08/24/2022 11 03/03/2021 12 Calcium (mg/dL) Date Value 03/03/2021 9.8 Calcium, Total (mg/dL) Date Value 08/24/2022 9.8 Protein, Total (g/dL) Date Value 08/24/2022 6.6 03/03/2021 6.8 Albumin (g/dL) Date Value 08/24/2022 4.3 03/03/2021 3.9 Bilirubin, Total (mg/dL) Date Value 08/24/2022 0.4 03/03/2021 0.7 Alkaline Phosphatase (U/L) Date Value 08/24/2022 100 03/03/2021 140 AST (U/L) Date Value 08/24/2022 25 03/03/2021 26 ALT (U/L) Date Value 08/24/2022 19 03/03/2021 41 Hemoglobin (g/dL) Date Value 08/24/2022 15.4 03/03/2021 12.6 Hematocrit (%) Date Value 08/24/2022 47.4 03/03/2021 39.4 WBC (k/uL) Date Value 08/24/2022 6.48 03/03/2021 16.17 Hemoglobin A1C Date Value Ref Range Status 08/24/2022 5.6 4.3 - 5.6 % Final Comment: [place] [employer] guidelines indicate that patients with HgbA1c in the range 5.7-6.4% are at increased risk for development of diabetes, and intervention by lifestyle modification may be beneficial. HgbA1c greater or equal to 6.5% is considered diagnostic of diabetes. 03/02/2022 5.5 4.3 - 5.6 % Final Comment: [place] [employer] guidelines indicate that patients with HgbA1c in the range 5.7-6.4% are at increased risk for development of diabetes, and intervention by lifestyle modification may be beneficial. HgbA1c greater or equal to 6.5% is considered diagnostic of diabetes. 08/04/2021 5.7 (H) 4.3 - 5.6 % Final Comment: [place] [employer] guidelines indicate that patients with HgbA1c in the range 5.7-6.4% are at increased risk for development of diabetes, and intervention by lifestyle modification may be beneficial. HgbA1c greater or equal to 6.5% is considered diagnostic of diabetes. PAST MEDICAL HISTORY Diagnosis Date Excessive or frequent menstruation Heavy periods resolved Mixed hyperlipidemia Hyperlipidemia Osteopenia 04/2012 Papanicolaou smear of cervix with atypical squamous cells of undetermined significance (ASC-US) 2005 Neg HPV Papanicolaou smear of cervix with low grade squamous intraepithelial lesion (LGSIL) 2004 PMH - PAST MEDICAL HISTORY OF 2002 complex endometrial hyperplasia Rectal polyp 04/07/11 tubular adenoma Scoliosis Tricuspid valve insufficiency 2017 repeat Echo in 2068-6298 Vitamin D deficiency PAST SURGICAL HISTORY Procedure Laterality Date BIOPSY BREAST OPEN INCISIONAL Bx of right breast, incisional COLONOSCOPY 06/28/2018 mid ascending colon polyp- benign; repeat [address] years/ Dr. Celso Gordon COLONOSCOPY AND POLYPECTOMY 04/07/11 repeat due 2014 HYSTEROSCOPY, DIAGNOSTIC (SEPARATE 06/06 Hysteroscopy/curettage PAST SURGICAL HISTORY OF ventral hernia repair x 2 PAST SURGICAL HISTORY OF laparoscopy x3 SALPINGO-OOPHORECTOMY COMPL/PRTL UNI/BI SPX Salpingo-oophorectomy/unilateral right TONSILLECTOMY PRIMARY/SECONDARY Tonsillect (more content not included)... [facility] 09-04-2022 Instructions Hola Simon DO - 09/04/2022 9:23 AM EDT Vitamin B12 at least 1000 mcg a day documented in this encounter [facility] 09-04-2022 History of Present illness Narrative CC: Giselle Quiñones is a 77 year old female who presents to the office for follow up HPI: Finger concern, left hand, 5th finger, feels it is getting bigger, present for the last 4-6 months. No skin color changes. No known injuries. Has been seen by orthopedics, had a steroid injection without relief. Is scheduled to have upcoming surgery in 2 weeks approx She is overall doing well. She is walking for exercise regularly HPL, she isn't interested in statin therapy Cholesterol, Total Date Value Ref Range Status 08/24/2022 254 (H) <200 mg/dL Final Comment: <200 mg/dL, Desirable 200-239 mg/dL, Borderline high >239 mg/dL, High HDL Cholesterol Date Value Ref Range Status 08/24/2022 54 >39 mg/dL Final Comment: 40-59 mg/dL, Acceptable >59 mg/dL, High: Negative risk factor for coronary heart disease <40 mg/dL, Low: Positive risk factor for coronary heart disease LDL Cholesterol Date Value Ref Range Status 08/24/2022 180 (H) <100 mg/dL Final Comment: <100 mg/dL, Optimal 100-129 mg/dL, Near optimal/above optimal 130-159 mg/dL, Borderline high 160-189 mg/dL, High >189 mg/dL, Very high Secondary prevention optimal LDL Cholesterol levels are recommended to be < 70 mg/dL Triglyceride Date Value Ref Range Status 08/24/2022 99 <150 mg/dL Final Comment: <150 mg/dL, Normal 150-199 mg/dL, Borderline high 200-499 mg/dL, High >499 mg/dL, Very high Glucose (mg/dL) Date Value 08/24/2022 94 03/03/2021 111 Potassium (mmol/L) Date Value 08/24/2022 4.3 03/03/2021 4.4 Sodium (mmol/L) Date Value 08/24/2022 142 03/03/2021 137 Chloride (mmol/L) Date Value 08/24/2022 106 03/03/2021 100 CO2 (mmol/L) Date Value 08/24/2022 25 03/03/2021 25 Creatinine (mg/dL) Date Value 08/24/2022 1.06 03/03/2021 0.85 BUN (mg/dL) Date Value 08/24/2022 18 03/03/2021 13 Anion Gap (mmol/L) Date Value 08/24/2022 11 03/03/2021 12 Calcium (mg/dL) Date Value 03/03/2021 9.8 Calcium, Total (mg/dL) Date Value 08/24/2022 9.8 Protein, Total (g/dL) Date Value 08/24/2022 6.6 03/03/2021 6.8 Albumin (g/dL) Date Value 08/24/2022 4.3 03/03/2021 3.9 Bilirubin, Total (mg/dL) Date Value 08/24/2022 0.4 03/03/2021 0.7 Alkaline Phosphatase (U/L) Date Value 08/24/2022 100 03/03/2021 140 AST (U/L) Date Value 08/24/2022 25 03/03/2021 26 ALT (U/L) Date Value 08/24/2022 19 03/03/2021 41 Hemoglobin (g/dL) Date Value 08/24/2022 15.4 03/03/2021 12.6 Hematocrit (%) Date Value 08/24/2022 47.4 03/03/2021 39.4 WBC (k/uL) Date Value 08/24/2022 6.48 03/03/2021 16.17 Hemoglobin A1C Date Value Ref Range Status 08/24/2022 5.6 4.3 - 5.6 % Final Comment: [place] [employer] guidelines indicate that patients with HgbA1c in the range 5.7-6.4% are at increased risk for development of diabetes, and intervention by lifestyle modification may be beneficial. HgbA1c greater or equal to 6.5% is considered diagnostic of diabetes. 03/02/2022 5.5 4.3 - 5.6 % Final Comment: [place] [employer] guidelines indicate that patients with HgbA1c in the range 5.7-6.4% are at increased risk for development of diabetes, and intervention by lifestyle modification may be beneficial. HgbA1c greater or equal to 6.5% is considered diagnostic of diabetes. 08/04/2021 5.7 (H) 4.3 - 5.6 % Final Comment: [place] [employer] guidelines indicate that patients with HgbA1c in the range 5.7-6.4% are at increased risk for development of diabetes, and intervention by lifestyle modification may be beneficial. HgbA1c greater or equal to 6.5% is considered diagnostic of diabetes. PAST MEDICAL HISTORY Diagnosis Date Excessive or frequent menstruation Heavy periods resolved Mixed hyperlipidemia Hyperlipidemia Osteopenia 04/2012 Papanicolaou smear of cervix with atypical squamous cells of undetermined significance (ASC-US) 2005 Neg HPV Papanicolaou smear of cervix with low grade squamous intraepithelial lesion (LGSIL) 2004 PMH - PAST MEDICAL HISTORY OF 2002 complex endometrial hyperplasia Rectal polyp 04/07/11 tubular adenoma Scoliosis Tricuspid valve insufficiency 2016 repeat Echo in [id number] Vitamin D deficiency PAST SURGICAL HISTORY Procedure Laterality Date BIOPSY BREAST OPEN INCISIONAL Bx of right breast, incisional COLONOSCOPY 06/28/2018 mid ascending colon polyp- benign; repeat 5 years/ Dr. Celso Gordon COLONOSCOPY & POLYPECTOMY 04/07/11 repeat due 2014 HYSTEROSCOPY, DIAGNOSTIC (SEPARATE 06/06 Hysteroscopy/curettage PAST SURGICAL HISTORY OF ventral hernia repair x 2 PAST SURGICAL HISTORY OF laparoscopy x3 SALPINGO-OOPHORECTOMY COMPL/PRTL UNI/BI SPX Salpingo-oophorectomy/unilateral right TONSILLECTOMY PRIMARY/SECONDARY <AGE 14 Tonsillectomy Current Outpatient Medications Medication Sig omeprazole (PRILOSEC) 40 mg capsule Take 1 capsule by mouth once daily. zinc sulfate (ZINC-15 ORAL) Take by mouth. ergocalciferol, vitamin D2, (VITAMIN D2 ORAL) Take by mouth. dicyclomine (BENTYL) 10 mg capsule Take 1 capsule by mouth before meals and at bedtime. For abdominal cramping or diarrhea estradiol (ESTRACE) 0.01 % (0.1 mg/gram) vaginal cream Generic okay, Apply pea-sized amount to perineum and 1 applicator vaginally Mon, Wed, Fri for atrophic vaginitis. ESTRACE 0.01 % (0.1 mg/gram) vaginal cream Use small amount at vaginal opening 2 nights per week albuterol HFA (PROAIR HFA) 90 mcg/actuation inhaler Inhale 2 Puffs as instructed every 4 hours as needed. calcium carbonate/vitamin d3(CALCIUM 600 + D 600 MG-125 UNIT TAB) Take one(1) tablet two(2) times daily. DAILY MULTIVITAMIN TAB fluticasone-salmeterol (ADVAIR DISKUS) 250-50 mcg/dose inhaler Inhale 1 Puff as instructed twice daily. Rinse and gargle mouth after use with water. [place]-3 Fatty Acids-Vitamin E 1,000 mg cap Take 1 capsule by mouth once daily. No current facility-administered medications for this visit. ALLERGIES Allergen Reactions Codeine tingling Nitrofurantoin GI Upset Prednisone Intolerance Social History Tobacco Use Smoking status: Never Smokeless tobacco: Never Vaping Use Vaping Use: Never used Substance Use Topics Alcohol use: No Drug use: No ROS See HPI PE: BP 124/80 Pulse 64 Temp (Src) 97 (Right Tympanic) Resp 16 Wt 120 lb (54.4kg) Gen: A&OX3, NAD, non-toxic appearing HEENT: PERRLA, EOMs intact b/l, nares without drainage, pharynx without erythema, exudate, lesions, or drainage. Uvula midline. Neck: No LAD, no thyromegaly, no meningismus. CV: RRR, no murmur Lungs: CTA b/l, no wheezing Skin: No rashes, lesions, or wounds on exposed skin. Duputreyns contracture hands No edema legs, normal peripheral pulses Scoliosis changes of spine ASSESSMENT/PLAN: 1. IFG (impaired fasting glucose) - ICD9: 790.21, ICD10: R73.01 (primary diagnosis) - diet controlled, improved, continue exercise 2. Encounter for screening mammogram for malignant neoplasm of breast - ICD9: V76.12, ICD10: Z12.31 - Set up for mammogram, yearly mammogram recommended - Encouraged monthly BSE - PREETI SCREENING [place] 3. Vitamin D deficiency - ICD9: 268.9, ICD10: E55.9 Continue supplement 4. Mixed hyperlipidemia - ICD9: 272.2, ICD10: E78.2 - Uncontrolled - Counseled on healthy diet and regular exercise 5. ATROPHIC VAGINITIS - ICD9: 627.3, ICD10: N95.2 - continue Estrace 6. Stage 3a chronic kidney disease (HCC) - ICD9: 585.3, ICD10: N18.31 - eGFR: Stable - Counseled on avoiding NSAIDs, adequate hydration 7. Dupuytren contracture - ICD9: 728.6, ICD10: M72.0 - f/u with Dr. Garsia for surgery as scheduled, no surgical concerns from medical perspective Hola Simon DO Return if no improvement. Follow up with Hola Simon DO. To ER if develops chest pain, shortness of breath Discussed risks, benefits, alternatives, and potential side effects of medications. Patient/Guardian expressed understanding and agreed with the plan. See patient instructions. Hola Simon DO [address] [place] [address] documented in this encounter [facility] 08-10-2022 Note HNO ID: [id number] Author: Dell Garsia MD Service: ? Author Type: Physician Type: Progress Notes Filed: 09/14/2022 7:30 AM Note Text: Dell Garsia MD Department of Orthopaedics [facility] [address] [facility] [address] Dept: [phone] Dept August 10, 2022 CHIEF COMPLAINT: Follow Up of the Left Little Finger (7 weeks 3 days post visit Dupuytren's contracture ) HPI Pt here for follow up visit for L pinky finger. Pt states contracture has gotten worse since LUZ, denies pain. ASSESSMENT: M72.0 Dupuytren's disease of palm (primary encounter diagnosis) PLAN: We reviewed the risks, benefits, alternatives and potential complications involving operative and nonoperative treatment. She understands and wishes to proceed with surgery for the small finger. Ms. Gislele Quiñones was advised as to contrast therapies and/or to take analgesics/anti-inflammatories as needed and all contraindications were reviewed. OBJECTIVE: Ms. Giselle Quiñones is a pleasant 77 year old in no apparent distress. Gen:There were no vitals taken for this visit. nl development, non obese, no deformities ENT: Normocephalic, normal hearing, moist mucosa CV: Pulses:Radial= 2+ and symmetric, capillary refill < 2 secs, no peripheral edema/varicosities Skin: no rash, bruising or lesions. Good turgor. Psych: cooperative and appropriate, alert and oriented x 3, good mood and affect. Musculoskeletal: Left, small finger, PIP of 45 degrees. Nodule softer since cortisone inj. Supporting Subjective Information Below: Past Surgical History: PAST SURGICAL HISTORY Procedure Laterality Date BIOPSY BREAST OPEN INCISIONAL Bx of right breast, incisional COLONOSCOPY 06/28/2018 mid ascending colon polyp- benign; repeat 5 years/ Dr. Celso Gordon COLONOSCOPY AND POLYPECTOMY 04/07/11 repeat due 2014 HYSTEROSCOPY, DIAGNOSTIC (SEPARATE 06/06 Hysteroscopy/curettage PAST SURGICAL HISTORY OF ventral hernia repair x 2 PAST SURGICAL HISTORY OF laparoscopy x3 SALPINGO-OOPHORECTOMY COMPL/PRTL UNI/BI SPX Salpingo-oophorectomy/unilateral right TONSILLECTOMY PRIMARY/SECONDARY Tonsillectomy Medications: Current Outpatient Medications Medication Sig zinc sulfate (ZINC-15 ORAL) Take by mouth. ergocalciferol, vitamin D2, (VITAMIN D2 ORAL) Take by mouth. estradiol (ESTRACE) 0.01 % (0.1 mg/gram) vaginal cream Generic okay, Apply pea-sized amount to perineum and 1 applicator vaginally Sun, Sun, Sun for atrophic vaginitis. ESTRACE 0.01 % (0.1 mg/gram) vaginal cream Use small amount at vaginal opening 2 nights per week albuterol HFA (PROAIR HFA) 90 mcg/actuation inhaler Inhale 2 Puffs as instructed every 4 hours as needed. [place]-3 Fatty Acids-Vitamin E 1,000 mg cap Take 1 capsule by mouth once daily. calcium carbonate/vitamin d3(CALCIUM 600 + D 600 MG-125 UNIT TAB) Take one(1) tablet two(2) times daily. DAILY MULTIVITAMIN TAB fluticasone-salmeterol (ADVAIR DISKUS) 250-50 mcg/dose inhaler Inhale 1 Puff as instructed twice daily. Rinse and gargle mouth after use with water. (Patient not taking: Reported on 08/10/2022) omeprazole (PRILOSEC) 40 mg capsule Take 1 capsule by mouth once daily. dicyclomine (BENTYL) 10 mg capsule Take 1 capsule by mouth before meals and at bedtime. For abdominal cramping or diarrhea (Patient not taking: Reported on 08/10/2022) No current facility-administered medications for this visit. Allergies: Codeine, Nitrofurantoin, and Prednisone ROS: General (negative for fatigue, malaise, weight loss/gain) HEENT (negative for headache, earache, recent vision changes, sinus pain, sore throat) Respiratory (no recent shortness of breath, hemoptysis) CV (negative for chest tightness, palpitations) Musculoskeletal (see HPI) Psych (no depression, anxiety) Dell Garsia MD [facility] 08-10-2022 History of Present illness Narrative Dell Garsia MD Department of Orthopaedics Orthopaedics [address] [facility] [address] Dept: [phone] Dept August 10, 2022 CHIEF COMPLAINT: Follow Up of the Left Little Finger (7 weeks 3 days post visit Dupuytren's contracture ) HPI Pt here for follow up visit for L pinky finger. Pt states contracture has gotten worse since LUZ, denies pain. ASSESSMENT: M72.0 Dupuytren's disease of palm (primary encounter diagnosis) PLAN: We reviewed the risks, benefits, alternatives and potential complications involving operative and nonoperative treatment. She understands and wishes to proceed with surgery for the small finger. Ms. Giselle Quiñones was advised as to contrast therapies and/or to take analgesics/anti-inflammatories as needed and all contraindications were reviewed. OBJECTIVE: Ms. Giselle Quiñones is a pleasant 77 year old in no apparent distress. Gen:There were no vitals taken for this visit. nl development, non obese, no deformities ENT: Normocephalic, normal hearing, moist mucosa CV: Pulses:Radial= 2+ and symmetric, capillary refill < 2 secs, no peripheral edema/varicosities Skin: no rash, bruising or lesions. Good turgor. Psych: cooperative and appropriate, alert and oriented x 3, good mood and affect. Musculoskeletal: Left, small finger, PIP of 45 degrees. Nodule softer since cortisone inj. Supporting Subjective Information Below: Past Surgical History: PAST SURGICAL HISTORY Procedure Laterality Date BIOPSY BREAST OPEN INCISIONAL Bx of right breast, incisional COLONOSCOPY 06/28/2018 mid ascending colon polyp- benign; repeat 5 years/ Dr. Celso Gordon COLONOSCOPY & POLYPECTOMY 04/07/11 repeat due 2014 HYSTEROSCOPY, DIAGNOSTIC (SEPARATE 06/06 Hysteroscopy/curettage PAST SURGICAL HISTORY OF ventral hernia repair x 2 PAST SURGICAL HISTORY OF laparoscopy x3 SALPINGO-OOPHORECTOMY COMPL/PRTL UNI/BI SPX Salpingo-oophorectomy/unilateral right TONSILLECTOMY PRIMARY/SECONDARY <AGE 14 Tonsillectomy Medications: Current Outpatient Medications Medication Sig zinc sulfate (ZINC-15 ORAL) Take by mouth. ergocalciferol, vitamin D2, (VITAMIN D2 ORAL) Take by mouth. estradiol (ESTRACE) 0.01 % (0.1 mg/gram) vaginal cream Generic okay, Apply pea-sized amount to perineum and 1 applicator vaginally Mon, Wed, Fri for atrophic vaginitis. ESTRACE 0.01 % (0.1 mg/gram) vaginal cream Use small amount at vaginal opening 2 nights per week albuterol HFA (PROAIR HFA) 90 mcg/actuation inhaler Inhale 2 Puffs as instructed every 4 hours as needed. [place]-3 Fatty Acids-Vitamin E 1,000 mg cap Take 1 capsule by mouth once daily. calcium carbonate/vitamin d3(CALCIUM 600 + D 600 MG-125 UNIT TAB) Take one(1) tablet two(2) times daily. DAILY MULTIVITAMIN TAB fluticasone-salmeterol (ADVAIR DISKUS) 250-50 mcg/dose inhaler Inhale 1 Puff as instructed twice daily. Rinse and gargle mouth after use with water. (Patient not taking: Reported on 08/10/2022) omeprazole (PRILOSEC) 40 mg capsule Take 1 capsule by mouth once daily. dicyclomine (BENTYL) 10 mg capsule Take 1 capsule by mouth before meals and at bedtime. For abdominal cramping or diarrhea (Patient not taking: Reported on 08/10/2022) No current facility-administered medications for this visit. Allergies: Codeine, Nitrofurantoin, and Prednisone ROS: General (negative for fatigue, malaise, weight loss/gain) HEENT (negative for headache, earache, recent vision changes, sinus pain, sore throat) Respiratory (no recent shortness of breath, hemoptysis) CV (negative for chest tightness, palpitations) Musculoskeletal (see HPI) Psych (no depression, anxiety) Dell Garsia MD documented in this encounter [facility] 06-19-2022 Note HNO ID: [id number] Author: Dell Garsia MD Service: ? Author Type: Physician Type: Progress Notes Filed: 07/21/2022 3:58 PM Note Text: Dell Garsia MD Department of Orthopaedics Orth[facility] [address] [place] [address] Dept: [phone] Dept June 19, 2022 CHIEF COMPLAINT: New and Tumor/Mass of the Left Little Finger HPI Patient presents with: Left Little Finger - New, Tumor/Mass Patient present to office with mass to left little finger. Patient does not complain of any pain at this time. Patient first noticed mass few months ago. Patient is being referred by hola simon. 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 We discussed multiple options which at this time she is not indicated for any kind of surgical or even enzymatic. We did review the possibility of improvement with a simple cortisone injection and she would like to try that. Follow-up as needed. OBJECTIVE: Ms. Giselle Quiñones is a pleasant 77 year old in no apparent distress. Gen:There were no vitals taken for this visit. nl development, non obese, no deformities ENT: Normocephalic, normal hearing, moist mucosa CV: Pulses:Radial= 2+ and symmetric, capillary refill < 2 secs, no peripheral edema/varicosities Skin: no rash, bruising or lesions. Good turgor. Psych: cooperative and appropriate, alert and oriented x 3, good mood and affect. Musculoskeletal: Left, small finger, small nodule over P1, close to the PIP joint. Very slight beginnings of a cord. 5 degrees of contracture. Additional Injections: L small A2 for trigger finger Informed Consent Consent Obtained: Verbal [place] Protocol A moment to CARE was completed. SIGN IN Personnel directly involved with the procedure wore the appropriate PPE. Special Equipment: N/A Patient/Surrogate Stated/Verified: Patient name, Date of , Relevant allergies and Intended procedure TIME OUT Intended patient and procedure match the source document(s). Consent documented and matches the intended procedure. Relevant labs, photos, and/or imaging studies have been reviewed. Correct side/site marked and visible. Medications required for procedure verified. Fire risk assessed and interventions discussed. No implant(s) inserted. 06/19/2022 12:30 PM The procedure site was prepped in the usual sterile fashion. Medications: 3 mg betamethasone acetate-betamethasone sodium phosphate 6 mg/mL Anesthetics: 0.5 mL lidocaine (PF) 10 mg/mL (1 %) Outcome: tolerated well, no immediate complications Post-injection instructions were reviewed with the patient and the patient voiced understanding of these instructions. SIGN OUT No specimen collected. No instruments, equipment or retained foreign bodies applicable. Post-procedure follow-up management communicated and Plan of Care Visit completed when applicable IMAGING: Deferred today Supporting Subjective Information Below: Past Medical History: PAST MEDICAL HISTORY Diagnosis Date Excessive or frequent menstruation Heavy periods resolved Mixed hyperlipidemia Hyperlipidemia Osteopenia 04/2012 Papanicolaou smear of cervix with atypical squamous cells of undetermined significance (ASC-US) 2005 Neg HPV Papanicolaou smear of cervix with low grade squamous intraepithelial lesion (LGSIL) 2004 PM - PAST MEDICAL HISTORY OF 2002 complex endometrial hyperplasia Rectal polyp 04/07/11 tubular adenoma Scoliosis Tricuspid valve insufficiency 2017 repeat Echo in 4795-8005 Vitamin D deficiency Past Surgical History: PAST SURGICAL HISTORY Procedure Laterality Date BIOPSY BREAST OPEN INCISIONAL Bx of right breast, incisional COLONOSCOPY 06/28/2018 mid ascending colon polyp- benign; repeat 5 years/ Dr. Celso Gordon COLONOSCOPY AND POLYPECTOMY 04/07/11 repeat due 2014 HYSTEROSCOPY, DIAGNOSTIC (SEPARATE 06/06 Hysteroscopy/curettage PAST SURGICAL HISTORY OF ventral hernia repair x 2 PAST SURGICAL HISTORY OF laparoscopy x3 SALPINGO-OOPHORECTOMY COMPL/PRTL UNI/BI SPX Salpingo-oophorectomy/unilateral right TONSILLECTOMY PRIMARY/SECONDARY Tonsillectomy Family History: FAMILY HISTORY Problem Relation Age of Onset Hypertension Mother Diabetes Mother Heart Mother Breast Cancer Maternal Aunt Social History: Social History Tobacco Use Smoking status: Never Smokeless tobacco: Never Substance Use Topics Alcohol use: No Drug use: No Medications: Current Outpatient Medications Medication Sig fluticasone-salmeterol (ADVAIR DISKUS) 250-50 mcg/dose inhaler Inhale 1 Puff as instructed twice daily. Rinse and gargle mouth after use with water. zinc sulfate (ZINC-15 ORAL) Take by mouth. ergocalciferol, vitamin D2, (VITAMIN D2 ORAL) Take by mouth. dicyclomine (BENTYL) 10 mg capsule Take 1 capsule by mouth (more content not included)... [facility] 06-19-2022 History of Present illness Narrative Associated Order(s): Additional Injections: L small A2 Post-Procedure Diagnose(s): Dupuytren's disease of palm Dell Garsia MD Department of Orthopaedics Orthopaedics [address] [facility] [address] Dept: [phone] Dept June 19, 2022 CHIEF COMPLAINT: New and Tumor/Mass of the Left Little Finger HPI Patient presents with: Left Little Finger - New, Tumor/Mass Patient present to office with mass to left little finger. Patient does not complain of any pain at this time. Patient first noticed mass few months ago. Patient is being referred by hola simon. 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 We discussed multiple options which at this time she is not indicated for any kind of surgical or even enzymatic. We did review the possibility of improvement with a simple cortisone injection and she would like to try that. Follow-up as needed. OBJECTIVE: Ms. Giselle Quiñones is a pleasant 77 year old in no apparent distress. Gen:There were no vitals taken for this visit. nl development, non obese, no deformities ENT: Normocephalic, normal hearing, moist mucosa CV: Pulses:Radial= 2+ and symmetric, capillary refill < 2 secs, no peripheral edema/varicosities Skin: no rash, bruising or lesions. Good turgor. Psych: cooperative and appropriate, alert and oriented x 3, good mood and affect. Musculoskeletal: Left, small finger, small nodule over P1, close to the PIP joint. Very slight beginnings of a cord. 5 degrees of contracture. Additional Injections: L small A2 for trigger finger Informed Consent Consent Obtained: Verbal [place] Protocol A moment to CARE was completed. SIGN IN Personnel directly involved with the procedure wore the appropriate PPE. Special Equipment: N/A Patient/Surrogate Stated/Verified: Patient name, Date of , Relevant allergies and Intended procedure TIME OUT Intended patient and procedure match the source document(s). Consent documented and matches the intended procedure. Relevant labs, photos, and/or imaging studies have been reviewed. Correct side/site marked and visible. Medications required for procedure verified. Fire risk assessed and interventions discussed. No implant(s) inserted. 06/19/2022 12:30 PM The procedure site was prepped in the usual sterile fashion. Medications: 3 mg betamethasone acetate-betamethasone sodium phosphate 6 mg/mL Anesthetics: 0.5 mL lidocaine (PF) 10 mg/mL (1 %) Outcome: tolerated well, no immediate complications Post-injection instructions were reviewed with the patient and the patient voiced understanding of these instructions. SIGN OUT No specimen collected. No instruments, equipment or retained foreign bodies applicable. Post-procedure follow-up management communicated and Plan of Care Visit completed when applicable IMAGING: Deferred today Supporting Subjective Information Below: Past Medical History: PAST MEDICAL HISTORY Diagnosis Date Excessive or frequent menstruation Heavy periods resolved Mixed hyperlipidemia Hyperlipidemia Osteopenia 04/2012 Papanicolaou smear of cervix with atypical squamous cells of undetermined significance (ASC-US) 2005 Neg HPV Papanicolaou smear of cervix with low grade squamous intraepithelial lesion (LGSIL) 2004 PMH - PAST MEDICAL HISTORY OF 2002 complex endometrial hyperplasia Rectal polyp 04/07/11 tubular adenoma Scoliosis Tricuspid valve insufficiency 2017 repeat Echo in [id number] Vitamin D deficiency Past Surgical History: PAST SURGICAL HISTORY Procedure Laterality Date BIOPSY BREAST OPEN INCISIONAL Bx of right breast, incisional COLONOSCOPY 06/28/2018 mid ascending colon polyp- benign; repeat 5 years/ Dr. Celso Gordon COLONOSCOPY & POLYPECTOMY 04/07/11 repeat due 2014 HYSTEROSCOPY, DIAGNOSTIC (SEPARATE 06/06 Hysteroscopy/curettage PAST SURGICAL HISTORY OF ventral hernia repair x 2 PAST SURGICAL HISTORY OF laparoscopy x3 SALPINGO-OOPHORECTOMY COMPL/PRTL UNI/BI SPX Salpingo-oophorectomy/unilateral right TONSILLECTOMY PRIMARY/SECONDARY <AGE 14 Tonsillectomy Family History: FAMILY HISTORY Problem Relation Age of Onset Hypertension Mother Diabetes Mother Heart Mother Breast Cancer Maternal Aunt Social History: Social History Tobacco Use Smoking status: Never Smokeless tobacco: Never Substance Use Topics Alcohol use: No Drug use: No Medications: Current Outpatient Medications Medication Sig fluticasone-salmeterol (ADVAIR DISKUS) 250-50 mcg/dose inhaler Inhale 1 Puff as instructed twice daily. Rinse and gargle mouth after use with water. zinc sulfate (ZINC-15 ORAL) Take by mouth. ergocalciferol, vitamin D2, (VITAMIN D2 ORAL) Take by mouth. dicyclomine (BENTYL) 10 mg capsule Take 1 capsule by mouth before meals and at bedtime. For abdominal cramping or diarrhea estradiol (ESTRACE) 0.01 % (0.1 mg/gram) vaginal cream Generic okay, Apply pea-sized amount to perineum and 1 applicator vaginally Mon, Wed, Fri for atrophic vaginitis. ESTRACE 0.01 % (0.1 mg/gram) vaginal cream Use small amount at vaginal opening 2 nights per week albuterol HFA (PROAIR HFA) 90 mcg/actuation inhaler Inhale 2 Puffs as instructed every 4 hours as needed. [place]-3 Fatty Acids-Vitamin E 1,000 mg cap Take 1 capsule by mouth once daily. calcium carbonate/vitamin d3(CALCIUM 600 + D 600 MG-125 UNIT TAB) Take one(1) tablet two(2) times daily. DAILY MULTIVITAMIN TAB omeprazole (PRILOSEC) 40 mg capsule Take 1 capsule by mouth once daily. No current facility-administered medications for this visit. Allergies: Codeine, Nitrofurantoin, and Prednisone ROS: General (negative for fatigue, malaise, weight loss/gain) HEENT (negative for headache, earache, recent vision changes, sinus pain, sore throat) Respiratory (no recent shortness of breath, hemoptysis) CV (negative for chest tightness, palpitations) Musculoskeletal (see HPI) Psych (no depression, anxiety) REFERRING PHYSICIAN: Consultation requested by Dr. Simon for an opinion regarding hand nodule. My final recommendations will be communicated back to the requesting physician by way of shared Medical record or letter to requesting physician via US mail. Hola Simon [address] [facility] [address] Hola Simon DO [address] [facility] [address] Dell Garsia MD documented in this encounter [facility] 06-09-2022 Note HNO ID: [id number] Author: Hola Simon, DO Service: ? Author Type: Physician Type: Progress Notes Filed: 06/09/2022 10:41 AM Note Text: CC: Giselle Quiñones is a 77 year old female who presents to the office for finger concern HPI: Finger concern, left hand, 5th finger, feels it is getting bigger, present for the last 2-3 months. No skin color changes. No known injuries. PAST MEDICAL HISTORY Diagnosis Date Excessive or frequent menstruation Heavy periods resolved Mixed hyperlipidemia Hyperlipidemia Osteopenia 04/2012 Papanicolaou smear of cervix with atypical squamous cells of undetermined significance (ASC-US) 2005 Neg HPV Papanicolaou smear of cervix with low grade squamous intraepithelial lesion (LGSIL) 2004 PMH - PAST MEDICAL HISTORY OF 2002 complex endometrial hyperplasia Rectal polyp 04/07/11 tubular adenoma Scoliosis Tricuspid valve insufficiency 2016 repeat Echo in [id number] Vitamin D deficiency PAST SURGICAL HISTORY Procedure Laterality Date BIOPSY BREAST OPEN INCISIONAL Bx of right breast, incisional COLONOSCOPY 06/28/2018 mid ascending colon polyp- benign; repeat 5 years/ Dr. Celso Gordon COLONOSCOPY AND POLYPECTOMY 04/07/11 repeat due 2014 HYSTEROSCOPY, DIAGNOSTIC (SEPARATE 06/06 Hysteroscopy/curettage PAST SURGICAL HISTORY OF ventral hernia repair x 2 PAST SURGICAL HISTORY OF laparoscopy x3 SALPINGO-OOPHORECTOMY COMPL/PRTL UNI/BI SPX Salpingo-oophorectomy/unilateral right TONSILLECTOMY PRIMARY/SECONDARY Tonsillectomy Current Outpatient Medications Medication Sig fluticasone-salmeterol (ADVAIR DISKUS) 250-50 mcg/dose inhaler Inhale 1 Puff as instructed twice daily. Rinse and gargle mouth after use with water. omeprazole (PRILOSEC) 40 mg capsule Take 1 capsule by mouth once daily. zinc sulfate (ZINC-15 ORAL) Take by mouth. ergocalciferol, vitamin D2, (VITAMIN D2 ORAL) Take by mouth. dicyclomine (BENTYL) 10 mg capsule Take 1 capsule by mouth before meals and at bedtime. For abdominal cramping or diarrhea estradiol (ESTRACE) 0.01 % (0.1 mg/gram) vaginal cream Generic okay, Apply pea-sized amount to perineum and 1 applicator vaginally Mon, Wed, Fri for atrophic vaginitis. ESTRACE 0.01 % (0.1 mg/gram) vaginal cream Use small amount at vaginal opening 2 nights per week albuterol HFA (PROAIR HFA) 90 mcg/actuation inhaler Inhale 2 Puffs as instructed every 4 hours as needed. [place]-3 Fatty Acids-Vitamin E (FISH OIL) 1,000 mg ORAL Cap Take 1 capsule by mouth once daily. calcium carbonate/vitamin d3(CALCIUM 600 + D 600 MG-125 UNIT TAB) Take one(1) tablet two(2) times daily. DAILY MULTIVITAMIN TAB No current facility-administered medications for this visit. ALLERGIES Allergen Reactions Codeine tingling Nitrofurantoin GI Upset Prednisone Intolerance Social History Tobacco Use Smoking status: Never Smokeless tobacco: Never Substance Use Topics Alcohol use: No Drug use: No ROS: See HPI. PE: BP 120/80 Pulse 60 Temp (Src) 97 (Left Tympanic) Resp 12 Wt 119 lb (54.0kg) Gen: AANDOX3, NAD, non-toxic appearing Skin: No rashes, lesions, or wounds on exposed skin. Subcutaneous well circumscribed 1/2 cm size lesion in palmar surface of proximal 5th finger left hand ASSESSMENT/PLAN: 1. 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 Excision is needed - CONSULT TO ORTHOPAEDICS Hola Simon DO Return if no improvement. Follow up with Hola Simon DO. To ER if develops chest pain, shortness of breath Discussed risks, benefits, alternatives, and potential side effects of medications. Patient/Guardian expressed understanding and agreed with the plan. See patient instructions. Hola Simon DO [address] [place] [address] [facility] 06-09-2022 History of Present illness Narrative CC: Giselle Quiñones is a 77 year old female who presents to the office for finger concern HPI: Finger concern, left hand, 5th finger, feels it is getting bigger, present for the last 2-3 months. No skin color changes. No known injuries. PAST MEDICAL HISTORY Diagnosis Date Excessive or frequent menstruation Heavy periods resolved Mixed hyperlipidemia Hyperlipidemia Osteopenia 04/2012 Papanicolaou smear of cervix with atypical squamous cells of undetermined significance (ASC-US) 2006 Neg HPV Papanicolaou smear of cervix with low grade squamous intraepithelial lesion (LGSIL) 2004 PMH - PAST MEDICAL HISTORY OF 2002 complex endometrial hyperplasia Rectal polyp 04/07/11 tubular adenoma Scoliosis Tricuspid valve insufficiency 2017 repeat Echo in 1855-1303 Vitamin D deficiency PAST SURGICAL HISTORY Procedure Laterality Date BIOPSY BREAST OPEN INCISIONAL Bx of right breast, incisional COLONOSCOPY 06/28/2018 mid ascending colon polyp- benign; repeat 5 years/ Dr. Celso Gordon COLONOSCOPY & POLYPECTOMY 04/07/11 repeat due 2014 HYSTEROSCOPY, DIAGNOSTIC (SEPARATE 06/06 Hysteroscopy/curettage PAST SURGICAL HISTORY OF ventral hernia repair x 2 PAST SURGICAL HISTORY OF laparoscopy x3 SALPINGO-OOPHORECTOMY COMPL/PRTL UNI/BI SPX Salpingo-oophorectomy/unilateral right TONSILLECTOMY PRIMARY/SECONDARY <AGE 14 Tonsillectomy Current Outpatient Medications Medication Sig fluticasone-salmeterol (ADVAIR DISKUS) 250-50 mcg/dose inhaler Inhale 1 Puff as instructed twice daily. Rinse and gargle mouth after use with water. omeprazole (PRILOSEC) 40 mg capsule Take 1 capsule by mouth once daily. zinc sulfate (ZINC-15 ORAL) Take by mouth. ergocalciferol, vitamin D2, (VITAMIN D2 ORAL) Take by mouth. dicyclomine (BENTYL) 10 mg capsule Take 1 capsule by mouth before meals and at bedtime. For abdominal cramping or diarrhea estradiol (ESTRACE) 0.01 % (0.1 mg/gram) vaginal cream Generic okay, Apply pea-sized amount to perineum and 1 applicator vaginally Mon, Wed, Sun for atrophic vaginitis. ESTRACE 0.01 % (0.1 mg/gram) vaginal cream Use small amount at vaginal opening 2 nights per week albuterol HFA (PROAIR HFA) 90 mcg/actuation inhaler Inhale 2 Puffs as instructed every 4 hours as needed. [place]-3 Fatty Acids-Vitamin E (FISH OIL) 1,000 mg ORAL Cap Take 1 capsule by mouth once daily. calcium carbonate/vitamin d3(CALCIUM 600 + D 600 MG-125 UNIT TAB) Take one(1) tablet two(2) times daily. DAILY MULTIVITAMIN TAB No current facility-administered medications for this visit. ALLERGIES Allergen Reactions Codeine tingling Nitrofurantoin GI Upset Prednisone Intolerance Social History Tobacco Use Smoking status: Never Smokeless tobacco: Never Substance Use Topics Alcohol use: No Drug use: No ROS: See HPI. PE: BP 120/80 Pulse 60 Temp (Src) 97 (Left Tympanic) Resp 12 Wt 119 lb (54.0kg) Gen: A&OX3, NAD, non-toxic appearing Skin: No rashes, lesions, or wounds on exposed skin. Subcutaneous well circumscribed 1/2 cm size lesion in palmar surface of proximal 5th finger left hand ASSESSMENT/PLAN: 1. 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 Excision is needed - CONSULT TO ORTHOPAEDICS Hola Simon DO Return if no improvement. Follow up with Hola Simon DO. To ER if develops chest pain, shortness of breath Discussed risks, benefits, alternatives, and potential side effects of medications. Patient/Guardian expressed understanding and agreed with the plan. See patient instructions. Hola Simon DO [address] [place] [address] documented in this encounter [facility] 05-06-2022 Miscellaneous Notes Patient called and notified of prescription sent and provider instructions. Patient voiced understanding. Symone Estrella RN Call placed to patient with no answer. Left message for patient to call back and ask to speak to a triage nurse to receive provider's message. Nancy Sampson RN Yes, please inform patient that I have sent rx for azithromycin to take with her for possible URI or Sinusitis or. Bronchitis with travel exposure if needed Hola Simon DO The following approved medication requests have been transmitted electronically. Requested Prescriptions Signed Prescriptions Disp Refills azithromycin (ZITHROMAX Z-DEWAYNE) 250 mg tablet 6 tablet 0 Sig: Take 2 tablets day one, then, 1 tablet daily until gone. Authorizing Provider: HOLA SIMON DO Patient calls to ask about the prescription for an antibiotic. Patient thought she was going to receive two prescriptions the Cipro along with something for possible Upper Respiratory Infection while she is traveling to [place]. Patient asking to clarify with provider if she should have something besides the Cipro. If another prescription is ordered please send to [facility]. Please call patient back with provider response at [phone]. Please review and advise, Nancy Sampson RN documented in this encounter [facility] 04-26-2022 Miscellaneous Notes This patient gave consent to this Medical Advice Message and is aware that it may result in a bill to their insurance, as well as the possibility of receiving a bill for a copay and/or deductible. They are an established patient, but are not seeking information exclusively about a problem treated during an in person or video visit in the last seven days. I did not recommend an in person or video visit within seven days of my reply. See the [facility] message reply for my assessment and plan. I spent a total of 15 minutes reviewing the patient's prior medical records and current request for medical advice, prescribing medications or ordering tests (if applicable), replying to the patient, and documenting the encounter. The following approved medication requests have been transmitted electronically. Requested Prescriptions Signed Prescriptions Disp Refills ciprofloxacin HCl (CIPRO) 500 mg tablet 20 tablet 0 Sig: Take 1 tablet by mouth twice daily for 10 days. Shara Erazo APRN.SAUD documented in this encounter [facility] 03-14-2022 Miscellaneous Notes Order faxed to [facility]. Lilibeth Tristan Ma documented in this encounter [facility] 03-06-2022 History of Present illness Narrative CC: Giselle Quiñones is a 76 year old female who presents to the office for follow up HPI: Recently diagnosed with IFG, has been working on cutting back on sugars and starches in her diet. Less pasta and breads. Hemoglobin A1C Date Value Ref Range Status 03/02/2022 5.5 4.3 - 5.6 % Final Comment: [place] [employer] guidelines indicate that patients with HgbA1c in the range 5.7-6.4% are at increased risk for development of diabetes, and intervention by lifestyle modification may be beneficial. HgbA1c greater or equal to 6.5% is considered diagnostic of diabetes. 08/04/2021 5.7 (H) 4.3 - 5.6 % Final Comment: [place] [employer] guidelines indicate that patients with HgbA1c in the range 5.7-6.4% are at increased risk for development of diabetes, and intervention by lifestyle modification may be beneficial. HgbA1c greater or equal to 6.5% is considered diagnostic of diabetes. HPL, diet controlled, taking omega 3 supplements. Scoliosis, chronic back pain, has been continuing to do exercises and stretches. 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 PAST MEDICAL HISTORY Diagnosis Date Excessive or frequent menstruation Heavy periods resolved Mixed hyperlipidemia Hyperlipidemia Osteopenia 04/2012 Papanicolaou smear of cervix with atypical squamous cells of undetermined significance (ASC-US) 2005 Neg HPV Papanicolaou smear of cervix with low grade squamous intraepithelial lesion (LGSIL) 2004 PMH - PAST MEDICAL HISTORY OF 2003 complex endometrial hyperplasia Rectal polyp 04/07/11 tubular adenoma Scoliosis Tricuspid valve insufficiency 2017 repeat Echo in 3726-4249 Vitamin D deficiency PAST SURGICAL HISTORY Procedure Laterality Date BIOPSY BREAST OPEN INCISIONAL Bx of right breast, incisional COLONOSCOPY 06/28/2018 mid ascending colon polyp- benign; repeat 5 years/ Dr. R Cebul COLONOSCOPY & POLYPECTOMY 04/07/11 repeat due 2015 HYSTEROSCOPY, DIAGNOSTIC (SEPARATE 06/06 Hysteroscopy/curettage PAST SURGICAL HISTORY OF ventral hernia repair x 2 PAST SURGICAL HISTORY OF laparoscopy x3 SALPINGO-OOPHORECTOMY COMPL/PRTL UNI/BI SPX Salpingo-oophorectomy/unilateral right TONSILLECTOMY PRIMARY/SECONDARY <AGE 14 Tonsillectomy Current Outpatient Medications Medication Sig fluticasone-salmeterol (ADVAIR DISKUS) 250-50 mcg/dose inhaler Inhale 1 Puff as instructed twice daily. Rinse and gargle mouth after use with water. omeprazole (PRILOSEC) 40 mg capsule Take 1 capsule by mouth once daily. zinc sulfate (ZINC-15 ORAL) Take by mouth. ergocalciferol, vitamin D2, (VITAMIN D2 ORAL) Take by mouth. dicyclomine (BENTYL) 10 mg capsule Take 1 capsule by mouth before meals and at bedtime. For abdominal cramping or diarrhea estradiol (ESTRACE) 0.01 % (0.1 mg/gram) vaginal cream Generic okay, Apply pea-sized amount to perineum and 1 applicator vaginally Mon, Wed, Sun for atrophic vaginitis. ESTRACE 0.01 % (0.1 mg/gram) vaginal cream Use small amount at vaginal opening 2 nights per week albuterol HFA (PROAIR HFA) 90 mcg/actuation inhaler Inhale 2 Puffs as instructed every 4 hours as needed. calcium carbonate/vitamin d3(CALCIUM 600 + D 600 MG-125 UNIT TAB) Take one(1) tablet two(2) times daily. DAILY MULTIVITAMIN TAB [place]-3 Fatty Acids-Vitamin E (FISH OIL) 1,000 mg ORAL Cap Take 1 capsule by mouth once daily. No current facility-administered medications for this visit. ALLERGIES Allergen Reactions Codeine tingling Nitrofurantoin GI Upset Prednisone Intolerance Social History Tobacco Use Smoking status: Never Smokeless tobacco: Never Substance Use Topics Alcohol use: No Drug use: No ROS: See HPI. PE: BP 100/60 Pulse 76 Temp (Src) 97 (Right Tympanic) Resp 16 Wt 117 lb (53.1kg) Gen: A&OX3, NAD, non-toxic appearing HEENT: PERRLA, EOMs intact b/l, nares without drainage, pharynx without erythema, exudate, lesions, or drainage. Uvula midline. MMM, EAC and TM normal b/l Neck: No LAD, no thyromegaly, no meningismus. No carotid bruits CV: RRR, no murmur, normal s1s2 Lungs: CTA b/l, no wheezing Skin: No rashes, lesions, or wounds on exposed skin. Thoracic kyphosis mild Scoliosis present thoracolumbar without Spinal TTP Paraspinal muscle tension present b/l thoracic and lumbar spine No edema legs, normal pulses ASSESSMENT/PLAN: 1. IFG (impaired fasting glucose) - ICD9: 790.21, ICD10: R73.01 (primary diagnosis) Diet controlled, improved, continue to limit starch intake 2. Encounter for screening mammogram for malignant neoplasm of breast - ICD9: V76.12, ICD10: Z12.31 - Follow up for annual exam in one year. - PREETI SCREENING [place] 3. Elevated serum creatinine - ICD9: 790.99, ICD10: R79.89 - stable, chronic, intermittent, need to increase water intake as d/w her today 4. Other cough - ICD9: 786.2, ICD10: R05.8 - stable, intermittent use of albuterol 5. Vitamin D deficiency - ICD9: 268.9, ICD10: E55.9 - continue supplement 6. Mixed hyperlipidemia - ICD9: 272.2, ICD10: E78.2 - to be determined upon return of lab results - Encouraged following a low fat, low cholesterol diet. - Discussed the benefits of regular aerobic exercise and weight loss. 7. ATROPHIC VAGINITIS - ICD9: 627.3, ICD10: N95.2 - stable, continue Estradiol topical Hola Simon DO Return if no improvement. Follow up with Hola Simon DO. To ER if develops chest pain, shortness of breath Discussed risks, benefits, alternatives, and potential side effects of medications. Patient/Guardian expressed understanding and agreed with the plan. See patient instructions. Hola Simon DO [address] [place] [address] documented in this encounter [facility] 03-06-2022 Instructions Hola Simon DO - 03/06/2022 9:58 AM EST For more information about having a 3D mammogram, contact the [facility] mammography department at . To schedule an appointment, call our scheduling line at . documented in this encounter [facility] 02-24-2022 Miscellaneous Notes Pt informed, verbalized understanding Arcelia Freed Ma Lab orders placed. Viola Champion APRN.CHAMBER WORKER Copied from patients [facility] message. Can I have RX for lab work before coming in on Mar.06. Thanks. documented in this encounter [facility] documented in this encounter [facility]06-10-[facility]22 Miscellaneous Notes* Telephone Encounter - Hola Simon DO - 09/09/2021 10:15 AM EDT The following approved medication requests have been transmitted electronically. Signed Prescriptions Disp Refills fluticasone-salmeterol (ADVAIR DISKUS) 250-50 mcg/dose inhaler 3 Each 3 Sig: Inhale 1 Puff as instructed twice daily. Rinse and gargle mouth after use with water. Authorizing Provider: HOLA SIMON DO * Telephone Encounter - Lona Turcios LPN - 09/09/2021 9:13 AM EDT Patient returned call states that the Advair at [facility] in [place] would be the best betancur. Please advise. * Telephone Encounter - Sena Palomino LPN - 09/09/2021 8:37 AM EDT Phoned patient and went over notes from Dr Simon, patient will check with insurance and get prices and call office back with which inhaler to go with. * Telephone Encounter - Hola Simon DO - 09/09/2021 7:05 AM EDT Yes, Qvar is an option. Other alternative is Advair or Symbicort. Does she want to check on these specific medication costs for her under her insurance or with good rx? Hola Simon DO * Telephone Encounter - Sena Palomino LPN - 09/08/2021 2:01 PM EDT Patient calling back the Pulmocort inhaler at [facility] costs 283 dollars. Patient asking if PCP would want her to use Qvar inhaler instead? She can get Qvar at [employer] with Goodrx coupon for 222dollars. She said what ever Dr Simon wants her to do. Please advise * Telephone Encounter - Eugenia Bartholomew RN - 09/08/2021 11:40 AM EDT Pt called in and reports that provider changed her nebulizer over to an inhaler, and it costs $200.I told Pt to call her insurance and see if they have a generic, or similar medication we could substitute that they would cover. Pt is going to call them and will get back to us. [facility] Miscellaneous Notes* Telephone Encounter - Arcelia Freed Ma - 09/07/2021 5:15 PM EDT Pt informed, verbalized understanding Arcelia Freed Ma * Telephone Encounter - Shara Elmore APRN.CNP - 09/07/2021 4:41 PM EDT No problem. Prescription sent. Please let patient know. The following approved medication requests have been transmitted electronically. Signed Prescriptions Disp Refills budesonide (PULMICORT FLEXHALER) 180 mcg/actuation aepb 1 Each 1 Sig: Inhale 2 Puffs as instructed twice daily. Authorizing Provider: SHARA ELMORE APRN.CNP * Telephone Encounter - Hina Villafuerte RN - 09/07/2021 12:27 PM EDT Patient calling to let PCP know the Budesonide nebulizer has been helping her persistent dry cough.She is asking if she can get a Budesonide inhaler which would be more convenient for her to use? Hina Villafuerte, RN [facility] Miscellaneous Notes* Telephone Encounter - Carlene Gonzalez LPN - 08/03/2021 5:21 PM EDT Notified pt of below. * Telephone Encounter - Shara Elmore APRN.CNP - 08/03/2021 5:12 PM EDT Lab orders are placed. Please let patient know. Shara Elmore APRN.CNP * Telephone Encounter - Brandyn Lopez RN - 08/03/2021 8:28 AM EDT Patient asking pcp to place lab orders for her. Reports she is scheduled for appt with pcp on Sunday this week, and would like to do labwork prior. Please phone patient to let her know when orders are in lab. [facility] Evaluation note* Diagnosis Stage 3a chronic kidney disease (HCC)- Primary Vitamin D deficiency Unspecified vitamin D deficiency Mixed hyperlipidemia Screening for diabetes mellitus Elevated fasting glucose Impaired fasting glucose documented in this encounter [facility]04-08-2022 History of Present illness Narrative* Bob Villafana MD - 07/08/2021 1:58 PM EDT Chief Complaint Patient presents with: Cough: persistent- constant throat clearing (x 4weeks) HPI Giselle Quiñones is a 76 year old female who presents here today for Above Complaints. Patient complaining of persistent dry cough x 1 month. Treating with mucinex, albuterol, delsym, Claritin, sophia seltzer without much improvement. Tried honey and lemon as well without much relief. Has been to express care twice with normal CXR on 06/18. Returned on 06/21 and was given 5 days of doxycycline which did not help symptoms much. 'Worse when lying down at night. Admits to globus sensationintermittently. Denies SOB, wheezing, chest pain, fever, chills, nausea, vomiting, diarrhea, nasal congestion, rhinorrhea. Does not get allergies around this time of year. Past medical history, appointments, medications, allergies reviewed. Previous Medical History PAST MEDICAL HISTORY Diagnosis Date Excessive or frequent menstruation Heavy periods resolved Mixed hyperlipidemia Hyperlipidemia Osteopenia 04/2012 Papanicolaou smear of cervix with atypical squamous cells of undetermined significance (ASC-US) 2005 Neg HPV Papanicolaou smear of cervix with low grade squamous intraepithelial lesion (LGSIL) 2004 PMH - PAST MEDICAL HISTORY OF 2002 complex endometrial hyperplasia Rectal polyp 04/07/11 tubular adenoma Scoliosis Tricuspid valve insufficiency 2017 repeat Echo in 8051-3766 Vitamin D deficiency Previous Surgical History PAST SURGICAL HISTORY Procedure Laterality Date BIOPSY BREAST OPEN INCISIONAL Bx of right breast, incisional COLONOSCOPY 06/28/2018 mid ascending colon polyp- benign; repeat 5 years/ Dr. Celso Gordon COLONOSCOPY & POLYPECTOMY 04/07/11 repeat due 2014 HYSTEROSCOPY, DIAGNOSTIC (SEPARATE 06/06 Hysteroscopy/curettage PAST SURGICAL HISTORY OF ventral hernia repair x 2 PAST SURGICAL HISTORY OF laparoscopy x3 SALPINGO-OOPHORECTOMY COMPL/PRTL UNI/BI SPX Salpingo-oophorectomy/unilateral right TONSILLECTOMY PRIMARY/SECONDARY <AGE 14 Tonsillectomy Family History FAMILY HISTORY Problem Relation Age of Onset Hypertension Mother Diabetes Mother Heart Mother Breast Cancer Maternal Aunt Patient Allergies ALLERGIES Allergen Reactions Codeine tingling Nitrofurantoin GI Upset Prednisone Intolerance Current Medications Current Outpatient Medications on File Prior to Visit Medication Sig zinc sulfate (ZINC-15 ORAL) Take by mouth. ergocalciferol, vitamin D2, (VITAMIN D2 ORAL) Take by mouth. ESTRACE 0.01 % (0.1 mg/gram) vaginal cream Use small amount at vaginal opening 2 nights per week albuterol HFA (PROAIR HFA) 90 mcg/actuation inhaler Inhale 2 Puffs as instructed every 4 hours as needed. [place]-3 Fatty Acids-Vitamin E (FISH OIL) 1,000 mg ORAL Cap Take 1 capsule by mouth once daily. calcium carbonate/vitamin d3(CALCIUM 600 + D 600 MG-125 UNIT TAB) Take one(1) tablet two(2) times daily. DAILY MULTIVITAMIN TAB dicyclomine (BENTYL) 10 mg capsule Take 1 capsule by mouth before meals and at bedtime. For abdominal cramping or diarrhea (Patient not taking: Reported on 07/08/2021 ) estradiol (ESTRACE) 0.01 % (0.1 mg/gram) vaginal cream Generic okay, Apply pea- sized amount to perineum and 1 applicator vaginally Mon, Wed, Fri for atrophic vaginitis. No current facility-administered medications on file prior to visit. Social History Social History Tobacco Use Smoking status: Never Smoker Smokeless tobacco: Never Used Substance Use Topics Alcohol use: No Drug use: No Review of Symptoms REVIEW OF SYSTEMS See HPI EXAM: BP 112/78 Pulse 73 Temp 36.7 C (98.1 F) Resp 16 Wt 54 kg (119 lb) SpO2 97% BMI 24.04 kg/m General Appearance: Well appearing, alert, in no acute distress, well-hydrated, well nourished.. Skin: Skin color, texture, turgor normal, no suspicious rashes or lesions. Head: Normocephalic, no masses, lesions, tenderness or abnormalities. Eyes: Anicteric sclera. Pupils are equally round and reactive to light. Extraocular movements are intact. . Ears: External ears normal, canals clear. Oropharynx: Lips, mucosa, and tongue normal, teeth and gums normal, oropharynx normal. Neck: Supple, no adenopathy; thyroid symmetric, normal size, no bruits. Lungs: Lungs clear to auscultation. No wheezing, rhonchi, rales.. Heart: RRR without murmur, gallop, or rubs. No ectopy. Health Maintenance List COVID-19 VACCINE(1) Never done SHINGRIX VACCINE(1 of 2) Never done COLORECTAL CANCER SCREENING due on 12/04/2017 DEPRESSION SCREENING due on 12/26/2019 DTAP,TDAP,TD(2 - Td or Tdap) due on 02/01/2021 ADVANCE DIRECTIVE DISCUSSION Never done INFLUENZA(Season Ended) due on 12/01/2021 SERUM CREATININE due on 03/03/2022 MAMMOGRAM due on 03/08/2022 ANNUAL PCP TEAM CHRONIC DISEASE VISIT due on 03/10/2022 DIABETES SCREEN due on 03/03/2024 LIPID SCREEN due on 04/13/2025 BONE DENSITY Completed HEPATITIS C SCREENING Completed PNEUMOVAX AGE 65 AND OVER WITH 5YR LOOKBACK Addressed MENINGOCOCCAL CONJUGATE Aged Out ASSESSMENT/PLAN: 1. Persistent dry cough - ICD9: 786.2, ICD10: R05.3 Suspect 2/2 silent reflux. Will start her on PPI and have her call in 1 week if symptoms are not improved. She is already on Claritin for allergies and using albuterol PRN without improvement. Bob Villafana MD [facility]* Diagnosis Persistent dry cough- Primary Cough [facility]* Diagnosis Abnormal mammogram Abnormal mammogram, unspecified documented in this encounter [facility] note* Diagnosis IFG (impaired fasting glucose)- Primary Impaired fasting glucose Encounter for screening mammogram for malignant neoplasm of breast Other screening mammogram Elevated serum creatinine Other nonspecific findings on examination of blood Other cough Vitamin D deficiency Unspecified vitamin D deficiency Mixed hyperlipidemia ATROPHIC VAGINITIS Postmenopausal atrophic vaginitis [facility]* Diagnosis Counseling about travel- Primary Other specified counseling documented in this encounter [facility] note* Diagnosis Digital mucinous cyst of finger of left hand- Primary documented in this encounter [facility] note* 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 [facility] Diagnosis IFG (impaired fasting glucose)- Primary Impaired fasting glucose Encounter for screening mammogram for malignant neoplasm of breast Other screening mammogram Vitamin D deficiency Unspecified vitamin D deficiency Mixed hyperlipidemia ATROPHIC VAGINITIS Postmenopausal atrophic vaginitis Stage 3a chronic kidney disease (HCC) Dupuytren contracture Contracture of palmar fascia Dupuytren's contracture Contracture of palmar fascia [facility]* 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 Dupuytren's contracture Contracture of palmar fascia [facility]* Diagnosis Dupuytren's contracture- Primary Contracture of palmar fascia [facility] Diagnostic Procedure Only (Routine) - Pending Review Specialty Diagnoses / Procedures Referred By Jamie yun Referred To Contact [facility] Diagnoses Encounter for screening mammogram for malignant neoplasm of breast Procedures PREETI SCREENING W [place] SCREENING DIGITAL BREAST TOMOSYNTHESIS BI SCREENING MAMMOGRAPHY BI 2-VIEW BREAST INC Hola oCx DO [address] [place] [address] [facility] [address] [place] [id number] Referral ID Status Reason Start Date Expiration Date Visits Requested Visits Authorized [id number] Pending Review Auto-Generat ed Referral 03/06/2022 04/05/2023 1 1 [facility] for referral (narrative)* Diagnostic Procedure Only (Routine) - Pending Review Specialty Diagnoses / Procedures Referred By Jamie yun Referred To Contact [facility] Diagnoses Encounter for screening mammogram for malignant neoplasm of breast Procedures PREETI SCREENING W [place] SCREENING DIGITAL BREAST TOMOSYNTHESIS BI SCREENING MAMMOGRAPHY BI 2-VIEW BREAST INC CAD Hola Simon, DO [address] [place] [address] [facility] [address] [place] [address] Referral ID Status Reason Start Date Expiration Date Visits Requested Visits Authorized [id number] Pending Review Auto-Generat ed Referral 09/04/2022 10/04/2023 1 1 [facility]* Diagnostic Procedure Only (Routine) - Authorized Specialty Diagnoses / Procedures Referred By Jamie yun Referred To Contact [facility] Diagnoses Abnormal mammogram Procedures PREETI DIAGNOSTIC BILAT DIAGNOSTIC MAMMOGRAPHY COMPUTER-AIDED DETCJ BI Hola Simon DO [address] [place] [address] [facility] [place] [address] Referral ID Status Reason Start Date Expiration Date Visits Requested Visits Authorized [id number] Authorized Auto-Generat ed Referral 03/09/2021 04/08/2022 1 1 [facility] Reason for Referral Specialty Diagnoses / Procedures Referred By Jamie yun Referred To Contact Orthopedics Diagnoses Digital mucinous cyst of finger of left hand Procedures CONSULT TO ORTHOPAEDICS OFFICE/OUTPATIENT NEW HIGH MDM 60-74 MINUTES Hola Simon, DO [address] [place] [address] Referral ID Status Reason Start Date Expiration Date Visits Requested Visits Authorized [id number] Authorized PCP Requested Referral 06/09/2022 06/09/2023 1 1 Medications Administered Section Inactive Administered Medications - up to 3 most recent administrations Medication Order MAR Action Action Date Dose Rate Site betamethasone acetate-betamethasone sodium phosphate 3 mg injection (CELESTONE) 3 mg, Injection - FOR ORTHO USE ONLY, ONE TIME INJECTION, 1 dose, Starting on Sun06/19/22 at 1230, Until Sun06/19/22 at 1230 Given 06/19/2022 12:30 PM EDT 3 mg Hand, Left lidocaine (PF) 10 mg/mL (1 %) 0.5 mL injection (XYLOCAINE) 0.5 mL, Injection - FOR ORTHO USE ONLY, ONE TIME INJECTION, 1 dose, Starting on Sun06/19/22 at 1230, Until Sun06/19/22 at 1230 Given 06/19/2022 12:30 PM EDT 0.5 mL Hand, Left Summary Purpose Family History No Family History Records FoundNo Family History Records Found Advance Directives No Advanced Directives Records FoundNo Advanced Directives Records Found Additional Source Comments Source Comments (unrecognize d section and content) In the event this informatio n is protected by the Federal Confidentiality of Alcohol and Drug Abuse Patient Records regulations: The Federal rules restrict any use of the information to criminally investigate or prosecute any alcohol or drug abuse patient.[facility] Hospital[facility] the event this information is protected by the Federal Confidentiality of Alcohol and Drug Abuse Patient Records regulations: The Federal rules restrict any use of the information to criminally investigate or prosecute any alcohol or drug abuse patient.[facility] Hospital[facility] the event this information is protected by the Federal Confidentiality of Alcohol and Drug Abuse Patient Records regulations: The Federal rules restrict any use of the information to criminally investigate or prosecute any alcohol or drug abuse patient.[facility] Hospital[facility] the event this information is protected by the Federal Confidentiality of Alcohol and Drug Abuse Patient Records regulations: The Federal rules restrict any use of the information to criminally investigate or prosecute any alcohol or drug abuse patient.[facility] Hospital[facility] the event this information is protected by the Federal Confidentiality of Alcohol and Drug Abuse Patient Records regulations: The Federal rules restrict any use of the information to criminally investigate or prosecute any alcohol or drug abuse patient.[facility] Hospital[facility] the event this information is protected by the Federal Confidentiality of Alcohol and Drug Abuse Patient Records regulations: The Federal rules restrict any use of the information to criminally investigate or prosecute any alcohol or drug abuse patient.[facility] Hospital[facility] the event this information is protected by the Federal Confidentiality of Alcohol and Drug Abuse Patient Records regulations: The Federal rules restrict any use of the information to criminally investigate or prosecute any alcohol or drug abuse patient.[facility] Hospital[facility] the event this information is protected by the Federal Confidentiality of Alcohol and Drug Abuse Patient Records regulations: The Federal rules restrict any use of the information to criminally investigate or prosecute any alcohol or drug abuse patient.[facility] Hospital[facility] the event this information is protected by the Federal Confidentiality of Alcohol and Drug Abuse Patient Records regulations: The Federal rules restrict any use of the information to criminally investigate or prosecute any alcohol or drug abuse patient.[facility] Hospital[facility] the event this information is protected by the Federal Confidentiality of Alcohol and Drug Abuse Patient Records regulations: The Federal rules restrict any use of the information to criminally investigate or prosecute any alcohol or drug abuse patient.[facility] Hospital[facility] the event this information is protected by the Federal Confidentiality of Alcohol and Drug Abuse Patient Records regulations: The Federal rules restrict any use of the information to criminally investigate or prosecute any alcohol or drug abuse patient.[facility] Hospital[facility] the event this information is protected by the Federal Confidentiality of Alcohol and Drug Abuse Patient Records regulations: The Federal rules restrict any use of the information to criminally investigate or prosecute any alcohol or drug abuse patient.[facility] Hospital[facility] the event this information is protected by the Federal Confidentiality of Alcohol and Drug Abuse Patient Records regulations: The Federal rules restrict any use of the information to criminally investigate or prosecute any alcohol or drug abuse patient.[facility] Hospital[facility] the event this information is protected by the Federal Confidentiality of Alcohol and Drug Abuse Patient Records regulations: The Federal rules restrict any use of the information to criminally investigate or prosecute any alcohol or drug abuse patient.[facility] HospitalIn the event this information is protected by the Federal Confidentiality of Alcohol and Drug Abuse Patient Records regulations: The Federal rules restrict any use of the information to criminally investigate or prosecute any alcohol or drug abuse patient.[facility] HospitalIn the event this information is protected by the Federal Confidentiality of Alcohol and Drug Abuse Patient Records regulations: The Federal rules restrict any use of the information to criminally investigate or prosecute any alcohol or drug abuse patient.[facility] Hospital[facility] the event this information is protected by the Federal Confidentiality of Alcohol and Drug Abuse Patient Records regulations: The Federal rules restrict any use of the information to criminally investigate or prosecute any alcohol or drug abuse patient.[facility] Hospital[facility] the event this information is protected by the Federal Confidentiality of Alcohol and Drug Abuse Patient Records regulations: The Federal rules restrict any use of the information to criminally investigate or prosecute any alcohol or drug abuse patient.[facility] HospitalIn the event this information is protected by the Federal Confidentiality of Alcohol and Drug Abuse Patient Records regulations: The Federal rules restrict any use of the information to criminally investigate or prosecute any alcohol or drug abuse patient.[facility] HospitalIn the event this information is protected by the Federal Confidentiality of Alcohol and Drug Abuse Patient Records regulations: The Federal rules restrict any use of the information to criminally investigate or prosecute any alcohol or drug abuse patient.[facility] Reason for Visit (unrecogniz ed section and content) Reason Comments Lab Orders Reason Comments Medication Question Reason Comments Medication Problem cost of inhalers Reason Comments Orders Reason Comments Follow Up Reason Comments Patient Question Reason Comments Musculoskeletal Problem left hand little finger unable to straighten x 1 month Reason Comments New Tumor/Mass Specialty Diagnoses / Procedures Referred By Jamie yun Referred To Contact Orthopedics Diagnoses Digital mucinous cyst of finger of left hand Procedures CONSULT TO ORTHOPAEDICS OFFICE/OUTPATIENT NEW HIGH MDM 60-74 MINUTES Hola Simon DO [address] [place] [address] Referral ID Status Reason Start Date Expiration Date V isits Requested Visits Authorized [id number] Closed PCP Requested Referral 06/09/2022 06/09/2023 1 1 Reason Comments 6 Month Exam Reason Comments Follow Up 7 weeks 3 days post visit Dupuytren's contracture Reason Comments Established Patient Post Op 5th finger kolb fasciotomy Reason Comments Patient Update Care Teams (unrecognized sec tion and content) Tire Man Relationship Specialty Start Date End Date Hola Simon DO [address] [place], [place] [id number] PCP - General Family Practice 12/10/15 Tire Man Relationship Specialty Start Date End Date Hola Simon, DO [address] [place] [address] PCP - General Family Practice 12/10/15 Tire Man Relationship Specialty Start Date End Date Hola Simon, DO [address] [place] [address] PCP - General Family Practice 12/10/15 Tire Man Relationship Specialty Start Date End Date Hola Simon, DO [address] [place] [address] PCP - General Family Practice 12/10/15 Tire Man Relationship Specialty Start Date End Date Hola Simon, DO [address] [place] [address] PCP - General Family Medicine 12/10/15 Tire Man Relationship Specialty Start Date End Date Hola Simon, DO [address] [place] [address] PCP - General Family Medicine 12/10/15 Tire Man Relationship Specialty Start Date End Date Hola Simon, DO [address] [place] [address] PCP - General Family Medicine 12/10/15 Tire Man Relationship Specialty Start Date End Date Hola Simon, DO [address] [place] [address] PCP - General Family Medicine 12/10/15 Tire Man Relationship Specialty Start Date End Date Hola Simon, DO [address] [place] [address] PCP - General Family Medicine 12/10/15 Tire Man Relationship Specialty Start Date End Date Hola Simon, DO [address] [place] [address] PCP - General Family Medicine 12/10/15 Tire Man Relationship Specialty Start Date End Date Hola Simon, DO [address] [place] [address] PCP - General Family Medicine 12/10/15 Tire Man Relationship Specialty Start Date End Date Hola Simon, DO [address] [place] [address] PCP - General Family Medicine 12/10/15 Tire Man Relationship Specialty Start Date End Date Hola Simon, DO [address] [place] [address] PCP - General Family Medicine 12/10/15 Tire Man Relationship Specialty Start Date End Date Hola Simon, DO [address] [place] [address] PCP - General Family Medicine 12/10/15 Tire Man Relationship Specialty Start Date End Date Hola Simon, DO [address] [place] [address] PCP - General Family Medicine 12/10/15 INFORMATION SOURCE (unrecogn ized section and content) DATE CREATED AUTHOR AUTHOR'S SHERRILL ATION 04/12/2023 [facility] FOR RECORDS PERTAINING TO PATIENTS WHO ARE OR HAVE BEEN ENROLLED IN A CHEMICAL DEPENDENCY/SUBSTANCEABUSE PROGRAM, SOME INFORMATION MAY BE OMITTED. This clinical summary was aggregated from multiple sources. Caution should be exercised in using it in the provision of clinical care. This summary normalizes information from multiple sources, and as a consequence, information in this document may materially change the coding, format and clinical context of patient data. In addition, data may be omitted in some cases. CLINICAL DECISIONS SHOULD BE BASED ON THE PRIMARY CLINICAL RECORDS. [facility]. provides no warranty or guarantee of the accuracy or completeness of information in this document.
== END | disposition home or self-care (01) ==
LOC: OPBI 08:27
PROVIDERS: PCP Student in an Organized Health Care Education/Training Program; Referring Provider Student in an Organized Health Care Education/Training Program; Visit Provider Student in an Organized Health Care Education/Training Program
DX: Z12.31 Encounter for screening mammogram for malignant neoplasm of breast (principal)
CPT/HCPCS: 77063; 77067

== ENCOUNTER 2023-08-28 06:07 | Day surgery (SDC) | payer MEDICARE, OTHER, SELFPAY ==
--- NOTE | 2023-08-28 06:09 | HP.PCM_ITS ---
History and Physical Date of Admission: 08/28/23 Visit Reasons: RECALL COLONOSCOPY Chief Complaint: recall colonoscopy Is patient in pain?: No Allergies codeine Allergy (Verified 07/31/23 14:48) Othernitrofurantoin Allergy (Verified 07/31/23 14:48) Upset Stomachprednisone Allergy (Verified 07/31/23 14:48) Other Medications calcium carbonate 500 mg-vitamin D3 15 mcg (600 unit) tablet 1 ea PO DAILY 06/25/18 [History Confirmed 07/31/23] estradiol 0.01% (0.1 mg/gram) vaginal cream (Estrace) 1 g vaginal Q7D 06/25/18 [History Confirmed 07/31/23] multivitamin (Daily Multiple tablet) 1 ea PO DAILY 06/25/18 [History Confirmed 07/31/23] glucosamine HCl 500 mg tablet 500 mg PO DAILY 07/31/23 [History Confirmed 07/31/23] zinc acetate 25 mg (zinc) capsule 25 mg PO DAILY 07/31/23 [History Confirmed 07/31/23] PFSH Social History (Updated 07/31/23 @ 14:47 by Courtney Lantigua) Smoking Status: Never smoker alcohol intake: never substance use type: does not use HPI HPI HPI: 78-year-old female. She was referred by Dr. Hola Noel and a written compromise surgical consult recommendations will return to her. I have most recently assisted the patient on June 28, 2018 with a colonoscopy. A 10 mm polyp was seen in the mid ascending colon was removed with a hot snare. Follow- up in 5 years recommended. Pathology demonstrates fragments of an inflammatory polyp. Pancolonic diverticulosis was identified at that time. Patient is enjoying a very high quality of life. No abdominal pain. No bright red blood per rectum or melena. No change in bowel habits. She is only on vitamin supplementation. ROS General General: No weight change, appetite, fatigue, colon cancer, breast cancer or weakness HEENT HEENT: No difficulty swallowing, eye injury, eye surgery, swollen glands or hoarseness Endo Endocrine: No thyroid disease, diabetes mellitus, thyroid cancer, Hair loss, heat intolerance or cold intolerance Skin Skin: No rash or changing moles Musc Musculoskeletal: Yes back problems; No arthritis, rheumatoid arthritis, gout or joint pain Cardio Cardiovascular: No murmur, pacemaker, heart disease, atrial fibrillation, high blood pressure, heart attack, heart stent, palpitations, shortness of breat with exertion or chest pain Psych Psychiatric: No depression, anxiety or hearing voices Resp Respiratory: No shortness of breath, No sleep apnea, No cough, No COPD, No asthma, No emphysema and No wheezing Gastro Gastrointestinal: No abdominal pain, No nausea or vomiting, No diarrhea, No constipation, No blood in stool, No acid reflux, No hemorrhoids, No ulcers, No gallbladder problem and No black,tarry stools Nikita Hematologic: No blood thinners, No blood disorders, No bleeding, No anemia and No blood clots Neuro Neurologic: No system reviewed and no additional complaints, except as documented, No as per HPI, No abnormal gait, No abnormal hearing, No abnormal movements, No abnormal speech, No behavioral changes, No burning sensations, No confusion, No convulsions, No disequilibrium, No dizziness, No localized weakness, No frequent falls, No headache(s), No lack of coordination, No loss of vision, No memory loss, No numbness, No other visual disturbances, No radicular pain, No restless legs, No sensory deficit, No syncope, No tingling, No tremor(s), No weakness and No other Exam Const General: cooperative, healthy appearing, comfortable and no acute distress Nutritional Appearance: average body habitus [facility] Head: normal to inspection Eyes General: appearance normal, both eyes and all related structures Neck Neck: normal visual inspection Chest Chest palpation & inspection: normal inspection of the chest Resp Effort & Inspection: normal respiratory effort Auscultation: clear to auscultation bilaterally Cardio Rate: regular rate Rhythm: regular rhythm GI Palpation: soft and no hepatosplenomegaly Musc Cervical Spine: normal cervical lordosis Skin General: no rashes or lesions noted Neuro General: patient alert, patient awake and patient oriented x3 Extrem General: no calf tenderness Psych Appearance: grossly normal Assessment and Plan Assessment and Plan (1) Personal history of colonic polyps: Status: Acute Plan: 78-year-old female is enjoying a very high quality of life. I do recommend to her surveillance colonoscopy with possible biopsy or polypectomy as indicated. She is requesting a GoLytely style prep. We will schedule procedure at her discretion. I very much appreciate the kind opportunity of assisting with her surgical care. Copy: Dr. Hola Gordon M.D., F.A.C.S I have examined the patient and the H&P has been reviewed. There are no clinical changes since date of exam. Corey Gordon M.D., F.A.C.S.
[2023-08-28 06:23] VITALS: BP 139/86; PULSE 56; RESP 16; TEMP 36.1; O2SAT 99; BMI 22.8
[2023-08-28] MEDS: Lactated Ringers 1,000 ML 15 ML IV (06:31)
[2023-08-28 07:32] VITALS: BP 103/64; BP 139/86; PULSE 61; RESP 18; TEMP 36.6; O2SAT 97
--- NOTE | 2023-08-28 07:32 | OP.COLON_ITS ---
Patient Name: Giselle Malave Procedure Date: 08/28/2023 7:07 AM Date of : 1945 Age: 78 Procedure: Colonoscopy Indications: High risk colon cancer surveillance: Personal history of colonic polyps Providers: Corey Gordon MD Referring MD: Hola Noel Medicines: See the Anesthesia note for documentation of the administered medications Patient Profile: Last Colonoscopy: May 2018. Complications: No immediate complications. Procedure: Pre-Anesthesia Assessment: - Prior to the procedure, a History and Physical was performed, and patient medications and allergies were reviewed. The patient's tolerance of previous anesthesia was also reviewed. The risks and benefits of the procedure and the sedation options and risks were discussed with the patient. All questions were answered, and informed consent was obtained. Prior Anticoagulants: The patient has taken no anticoagulant or antiplatelet agents. ASA Grade Assessment: II - A patient with mild systemic disease. After reviewing the risks and benefits, the patient was deemed in satisfactory condition to undergo the procedure. After I obtained informed consent, the scope was passed under direct vision. Throughout the procedure, the patient's blood pressure, pulse, and oxygen saturations were monitored continuously. The adult colonoscope was introduced through the anus and advanced to the cecum, identified by appendiceal orifice and ileocecal valve. The colonoscopy was performed without difficulty. The patient tolerated the procedure well. The quality of the bowel preparation was good. The ileocecal valve was photographed. Scope In: 7:15:54 AM Scope Withdrawal Time 0 hours 6 minutes 27 seconds Scope Out: 7:28:31 AM Total Procedure Duration Time 0 hours 12 minutes 37 seconds Findings: The digital rectal exam findings include decreased sphincter tone, non-thrombosed external hemorrhoids, non-thrombosed internal hemorrhoids and internal hemorrhoids that prolapse with straining, but spontaneously regress to the resting position (Grade II). Multiple diverticula were found in the entire colon. Impression: - Decreased sphincter tone, non-thrombosed external hemorrhoids, non-thrombosed internal hemorrhoids and internal hemorrhoids that prolapse with straining, but spontaneously regress to the resting position (Grade II) found on digital rectal exam. - Diverticulosis in the entire examined colon. - No specimens collected. Recommendation: - Discharge patient to home. - Resume previous diet. - Continue present medications. - Repeat colonoscopy is not recommended due to current age (66 years or older) for screening purposes. Procedure Code(s): --- Professional --- 23071, Colonoscopy, flexible; diagnostic, including collection of specimen(s) by brushing or washing, when performed (separate procedure) Diagnosis Code(s): --- Professional --- Z86.010, Personal history of colonic polyps K62.89, Other specified diseases of anus and rectum K64.1, Second degree hemorrhoids K64.4, Residual hemorrhoidal skin tags K57.30, Diverticulosis of large intestine without perforation or abscess without bleeding CPT copyright 2021 [employer]. All rights reserved. The codes documented in this report are preliminary and upon city detective review may be revised to meet current compliance requirements. Corey Gordon MD 08/28/2023 7:32:23 AM This report has been signed electronically. Number of Addenda: 0 Note Initiated On: 08/28/2023 7:07 AM
--- NOTE | 2023-08-28 07:32 | OP.CCLET_ITS ---
08/28/2023 Hola Noel [address] [id number] Re : Colonoscopy procedure for Giselle Malave Dear Dr. Noel This procedure was performed on Monday, August 28, 2023. My impressions and recommendations are as follows: Impressions : - Decreased sphincter tone, non-thrombosed external hemorrhoids, non-thrombosed internal hemorrhoids and internal hemorrhoids that prolapse with straining, but spontaneously regress to the resting position (Grade II) found on digital rectal exam. - Diverticulosis in the entire examined colon. - No specimens collected. Recommendations : - Discharge patient to home. - Resume previous diet. - Continue present medications. - Repeat colonoscopy is not recommended due to current age (66 years or older) for screening purposes. My findings are described in the full procedure note, which is enclosed. If I can be of further assistance, please feel free to contact me at Doctor phone number(s): Work: . Sincerely, Corey Gordon MD 08/28/2023 7:32:23 AM This report has been signed electronically.
[2023-08-28 07:35] VITALS: BP 139/86; BP 96/62; PULSE 59; RESP 18; O2SAT 97
[2023-08-28 07:40] VITALS: BP 139/86; BP 99/68; PULSE 51; RESP 16; O2SAT 96
[2023-08-28 07:45] VITALS: BP 109/67; BP 139/86; PULSE 57; RESP 16; TEMP 36.1; O2SAT 97
[2023-08-28 07:59] VITALS: BP 139/86
== END 2023-08-28 08:07 | disposition home or self-care (01) ==
LOC: EN 06:07 → AC 06:09
PROVIDERS: PCP Student in an Organized Health Care Education/Training Program; Referring Provider Student in an Organized Health Care Education/Training Program; Visit Provider Surgery
PROC: 0DJD8ZZ Inspection of Lower Intestinal Tract, Via Natural or Artificial Opening Endoscopic (ICD-10-PCS; CPT 45378; principal; 2023-08-28 07:10)
DX: Z12.11 Encounter for screening for malignant neoplasm of colon (principal); Z86.010 Personal history of colon polyps; K57.30 Diverticulosis of large intestine without perforation or abscess without bleeding; K64.1 Second degree hemorrhoids; K64.4 Residual hemorrhoidal skin tags; K62.89 Other specified diseases of anus and rectum
CPT/HCPCS: G0105; J7120; J2405

== ENCOUNTER → 2024-02-20 | Outpatient (CLI) | payer MEDICARE, OTHER, SELFPAY | END | disposition home or self-care (01) | LOC: LABSPEC 12:16 | PROVIDERS: PCP Student in an Organized Health Care Education/Training Program; Referring Provider Physician Assistant; Visit Provider Physician Assistant | DX: N39.0 Urinary tract infection, site not specified (principal) | CPT/HCPCS: 87086 ==

== ENCOUNTER → 2024-04-16 | Outpatient (CLI) | payer MEDICARE, OTHER, SELFPAY | END | disposition home or self-care (01) | LOC: LABSPEC 12:25 | PROVIDERS: PCP Student in an Organized Health Care Education/Training Program; Referring Provider Physician Assistant; Visit Provider Physician Assistant | DX: R30.0 Dysuria (principal) | CPT/HCPCS: 87086; 87088 ==

== ENCOUNTER → 2024-04-18 | Outpatient (CLI) | payer MEDICARE, OTHER, SELFPAY ==
--- NOTE | 2024-04-18 07:31 | BI_ITS ---
MAMMOGRAPHY - BILATERAL SCREENING REASON FOR EXAM: Female, 79 years old. Routine annual screening examination. PERTINENT HISTORY: Aunt with breast cancer. TECHNIQUE: Digital bilateral breast carolina (3D mammographic acquisition) in the CC and MLO projections. 2-D mediolateral oblique (MLO) and craniocaudad (CC) views of both breasts were obtained. CAD: Full Field Digital Mammography with Computer Added Detection was performed. COMPARISON: Comparison is made with prior study dated 12/16/2023 and April 10, 2022. FINDINGS: Breast Composition: The breasts are heterogeneously dense, which may obscure small masses. There are no dominant masses or suspicious calcifications. Stable asymmetry of breast tissue with more breast tissue is seen in the upper outer quadrant of the left breast as compared to the right side. Stable fat-containing bilateral axillary lymph nodes. No other significant abnormalities are identified. There has been no significant change since the prior study. BI/SCRN MAMM (CAD)W/CAROLINA BILAT IMPRESSION: Stable bilateral screening mammogram. Yearly follow-up mammogram recommended. (A) ASSESSMENT CATEGORY: BIRADS Category 2: Benign. A letter regarding these results will be sent to the patient by the facility within 30 days. Approximately 10% of breast cancers are not detected by mammography. A normal mammogram should not delay biopsy of a clinically suspicious abnormality. [id number] Electronically Signed: Dano Carlson MD at 8:25 EST ,
== END | disposition home or self-care (01) ==
LOC: OPBI 07:28
PROVIDERS: PCP Student in an Organized Health Care Education/Training Program; Referring Provider Student in an Organized Health Care Education/Training Program; Visit Provider Student in an Organized Health Care Education/Training Program
DX: Z12.31 Encounter for screening mammogram for malignant neoplasm of breast (principal)
CPT/HCPCS: 77063; 77067